=== PATIENT | male | born 1935 | race Caucasian/White ===

== ENCOUNTER 2016-10-24 12:52 | Inpatient (IN) | payer MEDICARE, BC ==
[2016-10-24] MEDS ORDERED: IPRATROPIUM-ALBUTEROL 3 ML NEB INHALATION STA (13:25)
--- NOTE | 2016-10-24 13:57 | ED ---
General Adult HPI - General Chief complaint: Upper Respiratory Infection Stated complaint: Cough Time Seen by Provider: 10/24/16 13:23 Source: patient Mode of arrival: wheelchair Limitations: no limitations - History of Present Illness Initial comments: 81-year-old male presenting for persistent cough and shortness of breath. Patient was treated by PCP several days ago for concern for bronchitis. PCP reevaluated patient today was concern for left lower lobe pneumonia. However family states the patient has had some issues where he appears to be passing out and has had some new onset of generalized weakness. PCP was concerned for possible mini strokes patient was directed to the ED. Eyes any chest pain or shortness breath. Patient denies any history of CVA. - Related Data Home Medications Medication Instructions Recorded Confirmed Donepezil [Aricept] 5 mg PO BID 05/03/15 10/24/16 Lisinopril [Prinivil] 20 mg PO BID 05/03/15 10/24/16 Apixaban [Eliquis] 2.5 mg PO BID 06/28/16 10/24/16 amLODIPine [Norvasc] 5 mg PO DAILY 06/28/16 10/24/16 levETIRAcetam [Keppra] 500 mg PO Q12HR 06/28/16 10/24/16 Previous Rx's Medication Instructions Recorded Albuterol Inhaler [Ventolin Hfa 2 puff INHALATION Q4HR PRN #1 10/24/16 Inhaler] inhaler Levofloxacin [Levaquin] 750 mg PO DAILY #7 tab 10/24/16 Allergies Allergy/AdvReac Type Severity Reaction Status Date / Time No Known Allergies Allergy Verified 10/24/16 13:01 Review of Systems ROS Statement: Those systems with pertinent positive or pertinent negative responses have been documented in the HPI. Constitutional: No fevers. No chills. No change in appetite. No unexpected weight loss. Eyes: No visual changes. No eye pain. No sensitivity to light. HENT: No sinus pressure. No ear pain. No hearing changes. No epistaxis. No sore throat. Respiratory: Positive cough. Positive SOB. No wheezing. Cardiovascular: No chest pain. No palpitations. No lower extremity edema. Abdomen: No abdominal pain. No nausea. No vomiting. No diarrhea. Genitourinary: No dysuria. No hematuria. No difficulty urinating. No flank pain. Musculoskeletal: No injury. No back pain. No myalgias. Skin: No rash. No lesions. No lacerations. Neuro: Positive generalized weakness. Positive syncope. No seizures. No headache. Psych: No confusion. No memory changes. No anxiety/depression. ROS Other: All systems not noted in ROS Statement are negative. Past Medical History Past Medical History: Cancer, Dementia, Hyperlipidemia, Hypertension, Osteoarthritis (OA) Additional Past Medical History / Comment(s): Bladder cancer with surgery. History of Any Multi-Drug Resistant Organisms: None Reported Past Surgical History: Bladder Surgery Additional Past Surgical History / Comment(s): 2011 colonoscopy, cystoscopy, bladder TUR, cancerous tumors removed x2 from bladder. Past Anesthesia/Blood Transfusion Reactions: No Reported Reaction Past Psychological History: No Psychological Hx Reported Additional Psychological History / Comment(s): Pt resides in his home. He has caregivers. He uses no assistive device. He no longer drives. He performs his own ADLs but care takers manage his medications. Smoking Status: Never smoker Past Alcohol Use History: Occasional Additional Past Alcohol Use History / Comment(s): Pt was a heavy drinker but has not drank alcohol in 1 1/2 yrs. Past Drug Use History: None Reported - Past Family History Mother Family Medical History: No Reported History (Mother at age of 32 they thought that she encountered a pneumonia.) Additional Family Medical History / Comment(s): Mother after childbirth from an infection-influenza or pneumonia possibly. Father Family Medical History: No Reported History (Father at age 78 from farm accident) Additional Family Medical History / Comment(s): Father from a tractor accident in his 70's Brother(s) Family Medical History: No Reported History (Patient had 4 brothers one of them at age of 92 from Alzheimer dementia) Sister(s) Family Medical History: No Reported History (Patient had a sister who at the age of 2 year of unknown cause.) Daughter(s) Family Medical History: No Reported History (Vision has 2 daughters no major medical problems) General Exam - General Exam Comments Initial Comments: General: Awake and Alert. No acute distress. Does not appear acutely ill. Obese. Eyes: MICA, EOM intact. No nystagmus. No scleral icterus. HENT: Atraumatic, normocephalic. Mucous membranes moist. Trachea midline. Hard of hearing. Neck: The neck is supple, there is no tenderness or JVD. Cardiovascular: Regular rate and rhythm. No murmur, rub, or gallop is appreciated. Distal pulses intact. There is no lower upper or extremity extremity edema. Respiratory: Lungs are clear to auscultation bilaterally. No wheezes, rales, rhonchi. No respiratory distress. Gastrointestinal: Soft, Nontender. No rebound or guarding. Non-distended. No masses or organomegaly noted. No CVA tenderness. Musculoskeletal: No tenderness. Normal ROM. No gross deformity. No strength deficits. Neurological: A&Ox2 which is baseline per family. CN II-XII grossly intact, There are no obvious motor or sensory deficits. Coordination appears grossly intact. Speech is normal. Skin: Skin is warm and dry and no rashes or lesions are noted. Psychiatric: Cooperative, appropriate mood & affect, normal judgment. Limitations: no limitations Course Vital Signs 10/24/16 10/24/16 10/24/16 12:56 13:49 13:58 Temperature 97.9 F Pulse Rate 64 68 76 Respiratory 18 Rate Blood Pressure 131/65 O2 Sat by Pulse 92 L Oximetry 10/24/16 10/24/16 10/24/16 15:10 16:31 18:46 Temperature 97.6 F 97.3 F L 97.4 F L Pulse Rate 62 70 65 Respiratory 16 16 16 Rate Blood Pressure 118/57 139/63 131/65 O2 Sat by Pulse 91 L 94 L 94 L Oximetry EKG Findings - EKG Comments: EKG Findings:: 14:04. Sinus rhythm with first-degree AV block. Rate 64. NC to 98. QRS 78. QT/QTc 390/42. Normal axis. No STEMI. Nonspecific EKG. Medical Decision Making - Medical Decision Making Patient presented for cough and congestion and shortness of breath. Also with nonspecific weakness and possible syncopal/near syncopal episodes over the past few days. Was sent by PCP for TIA rule out. Patient on initial exam with no focal neurological deficits. Does have some diffuse rhonchi. Lab workup with leukocytosis. BMP is stable. Chest x-ray showing some interstitial markings given his clinical findings concerning for possible pneumonia. Patient was covered on Levaquin given his apparent outpatient failure of azithromycin. Patient does not appear septic at this time. However given these changes a CT head was performed which shows some chronic ischemic changes. Does not appear to have any acute CVA findings. However plan for admission for further CVA rule out as well as workup for his syncope/near syncope. NIHSS 0 on initial exam, with exception of being alerted to person, place, and time, although AOx2 is his baseline. I updated the family and patient on current findings. Discussed plan to treat for pneumonia. Discussed my concerns for syncope and recommendation for admission for further evaluation and treatment. They declined admission at this time. Discussed risks of not staying in the hospital including stroke, heart attack and even . The guardians voice understanding and agree. Discussed discharge home AGAINST MEDICAL ADVICE after remainder of lab work returns. They're agreeable to stay for this. Troponin returned elevated. Discussed this finding with family and concern for NSTEMI. Discussed trending troponins and need for admission. The guardians do agree to keep him in the hospital this time. Patient is anticoagulated on Eliquis, will defer heparin. He was given an aspirin. He is having no active chest pain, appears stable. I called discussed with Dr. Ramirez who is agreeable with plan for admission. Requests consult to cardiology. 18:35 Repeat troponin without increased. Repeat EKG was also performed which shows no significant changes or STEMI. - Lab Data Result diagrams: 10/24/16 13:49 10/24/16 13:49 Lab Results 10/24/16 10/24/16 10/24/16 Range/Units 13:49 13:49 13:49 WBC 12.2 H (3.8-10.6) k/uL RBC 4.79 (4.30-5.90) m/uL Hgb 15.5 (13.0-17.5) gm/dL Hct 46.2 (39.0-53.0) % MCV 96.5 (80.0-100.0) fL MCH 32.4 (25.0-35.0) pg MCHC 33.5 (31.0-37.0) g/dL RDW 12.4 (11.5-15.5) % Plt Count 186 (150-450) k/uL Neutrophils % 74 % Lymphocytes % 15 % Monocytes % 8 % Eosinophils % 1 % Basophils % 0 % Neutrophils # 9.0 H (1.3-7.7) k/uL Lymphocytes # 1.9 (1.0-4.8) k/uL Monocytes # 1.0 (0-1.0) k/uL Eosinophils # 0.1 (0-0.7) k/uL Basophils # 0.0 (0-0.2) k/uL Sodium 138 (137-145) mmol/L Potassium 4.7 (3.5-5.1) mmol/L Chloride 102 (98-107) mmol/L Carbon Dioxide 25 (22-30) mmol/L Anion Gap 11 mmol/L BUN 19 (9-20) mg/dL Creatinine 0.88 (0.66-1.25) mg/dL Est GFR (MDRD) Af Amer >60 (>60 ml/min/1.73 sqM) Est GFR (MDRD) Non-Af >60 (>60 ml/min/1.73 sqM) Glucose 96 (74-99) mg/dL Calcium 9.1 (8.4-10.2) mg/dL CK-MB (CK-2) 3.8 H* (0.0-2.4) ng/mL Troponin I 0.923 H* (0.000-0.034) ng/mL NT-Pro-B Natriuret Pep pg/mL Urine Color Urine Appearance (Clear) Urine pH (5.0-8.0) Ur Specific [place] (1.001-1.035) Urine Protein (Negative) Urine Glucose (UA) (Negative) Urine Ketones (Negative) Urine Blood (Negative) Urine Nitrate (Negative) Urine Bilirubin (Negative) Urine Urobilinogen (<2.0) mg/dL Ur Leukocyte Esterase (Negative) 10/24/16 10/24/16 10/24/16 Range/Units 13:49 14:17 16:40 WBC (3.8-10.6) k/uL RBC (4.30-5.90) m/uL Hgb (13.0-17.5) gm/dL Hct (39.0-53.0) % MCV (80.0-100.0) fL MCH (25.0-35.0) pg MCHC (31.0-37.0) g/dL RDW (11.5-15.5) % Plt Count (150-450) k/uL Neutrophils % % Lymphocytes % % Monocytes % % Eosinophils % % Basophils % % Neutrophils # (1.3-7.7) k/uL Lymphocytes # (1.0-4.8) k/uL Monocytes # (0-1.0) k/uL Eosinophils # (0-0.7) k/uL Basophils # (0-0.2) k/uL Sodium (137-145) mmol/L Potassium (3.5-5.1) mmol/L Chloride (98-107) mmol/L Carbon Dioxide (22-30) mmol/L Anion Gap mmol/L BUN (9-20) mg/dL Creatinine (0.66-1.25) mg/dL Est GFR (MDRD) Af Amer (>60 ml/min/1.73 sqM) Est GFR (MDRD) Non-Af (>60 ml/min/1.73 sqM) Glucose (74-99) mg/dL Calcium (8.4-10.2) mg/dL CK-MB (CK-2) (0.0-2.4) ng/mL Troponin I 0.857 H* (0.000-0.034) ng/mL NT-Pro-B Natriuret Pep 1210 pg/mL Urine Color Yellow Urine Appearance Clear (Clear) Urine pH 6.0 (5.0-8.0) Ur Specific [place] 1.010 (1.001-1.035) Urine Protein Negative (Negative) Urine Glucose (UA) Negative (Negative) Urine Ketones Negative (Negative) Urine Blood Negative (Negative) Urine Nitrate Negative (Negative) Urine Bilirubin Negative (Negative) Urine Urobilinogen 3.0 (<2.0) mg/dL Ur Leukocyte Esterase Negative (Negative) - EKG Data -: EKG Interpreted by Md EKG shows normal: sinus rhythm Rate: normal Interpretation: no acute changes - Radiology Data Radiology results: report reviewed, image reviewed Disposition Clinical Impression: CAP (community acquired pneumonia), Syncope, Generalized weakness, NSTEMI (non- ST elevated myocardial infarction), Leukocytosis Disposition: ADMITTED IP TO THIS [facility] Condition: Stable Decision to Admit Reason: Admit from EC
[2016-10-24 14:01] LABS: Basophils % (A) 0 %; CH 33.6; CHCM 34.9; Eosinophils # (A) 0.1 k/uL (0-0.7); Eosinophils % (A) 1 %; HCT 46.2 % (39.0-53.0); HGB 15.5 gm/dL (13.0-17.5); Luc # (Auto) 0.25; Luc % (Auto) 2; Lymphocytes # (A) 1.9 k/uL (1.0-4.8); Lymphocytes % (A) 15 %; MCH 32.4 pg (25.0-35.0); MCHC 33.5 g/dL (31.0-37.0); MCV 96.5 fL (80.0-100.0); Mean Platelet Volume 8.1; Monocytes % (A) 8 %; Neutrophils % (A) 74 %; RBC 4.79 m/uL (4.30-5.90); RDW 12.4 % (11.5-15.5); WBC 12.2 k/uL (3.8-10.6); WBC (Perox) 12.56
[2016-10-24 14:16] LABS: Anion Gap 11 mmol/L; Blood Urea Nitrogen 19 mg/dL (9-20); Calcium 9.1 mg/dL (8.4-10.2); Carbon Dioxide 25 mmol/L (22-30); Chloride 102 mmol/L (98-107); Glucose 96 mg/dL (74-99); Non-African American GFR(MDRD) >60 (>60 ml/min/1.73 sqM); Potassium 4.7 mmol/L (3.5-5.1); Sodium 138 mmol/L (137-145)
[2016-10-24 14:26] LABS: Appearance,Urine Clear (Clear); Bilirubin,Urine Negative (Negative); Glucose,Urine (UA) Negative (Negative); Ketones,Urine Negative (Negative); Leukocyte Esterase,Urine Negative (Negative); Nitrite,Urine Negative (Negative); Protein,Urine Negative (Negative); UA Billing (MACRO vs. MICRO) CHEM
--- NOTE | 2016-10-24 15:07 | XR ---
EXAMINATION TYPE: XR chest 2V DATE OF EXAM: 10/24/2016 3:03 PM COMPARISON: 06/28/16 HISTORY: Shortness of breath TECHNIQUE: Frontal and lateral views of the chest are obtained. FINDINGS: Scattered senescent parenchymal changes noted. Hyperinflation compatible with COPD. There is evidence of interstitial edema with small effusions and cardiomegaly. Correlate for mild bor derline CHF. Mediastinal structures are stable and grossly unremarkable. No evidence for hilar prominence. Degenerative changes dorsal spine. IMPRESSION: 1. There is evidence of interstitial edema with small effusions and cardiomegaly. Correlate for mild borderline CHF.
--- NOTE | 2016-10-24 15:07 | CT ---
EXAMINATION TYPE: CT brain wo con DATE OF EXAM: 10/24/2016 2:56 PM COMPARISON: NONE INDICATION: Confusion DLP: 1106 mGycm, Automated exposure control for dose reduction was used. CONTRAST: None CT of the brain is performed utilizing 3 mm thick sections through the posterior fossa and 3 mm thick sections through the remaining calvarium. Study is performed within 24 hours of arrival to the hosp ital. No abnormal hyperdensity is present to suggest an acute intracranial hemorrhage. No mass lesion is evident. No acute infarcts are evident. Periventricular white matter hypodensity is present, likely on the bas is of chronic white matter ischemic changes. Ventricles and sulci are prominent for the patient age. Paranasal sinuses and mastoid air cells within the [id number] are clear. Vascular calcification is noted distal internal carotid arteries and vertebral basilar system. Examination is stable from 05/02/2015. IMPRESSIONS: 1. Atrophy with periventricular white matter ischemic changes.
[2016-10-24] MEDS ORDERED: LEVOFLOXACIN 750MG-D5W PMX 750 MG in DEXTROSE/WATER 1 150ML.BAG IVPB STA (15:11)
[2016-10-24] MEDS ORDERED: AZITHROMYCIN 500 MG in SODIUM CHLORIDE 0.9% 250 ML IVPB STA (15:11)
[2016-10-24 16:36] LABS: Creatine Kinase MB 3.8 ng/mL (0.0-2.4); Troponin I 0.923 ng/mL (0.000-0.034)
[2016-10-24] MEDS: ASPIRIN 81 MG CHEW PO STA (16:59)
[2016-10-24] MEDS ORDERED: NITROGLYCERIN SL TABS 0.4 MG TAB SUBLINGUAL PRN (18:07)
[2016-10-24] MEDS ORDERED: LORazepam 1 MG TAB PO STA (18:30)
[2016-10-24 19:25] LABS: Glucose,Whole Blood 90 mg/dL (75-99)
[2016-10-24] MEDS: levETIRAcetam 500 MG TAB PO SCH (22:25)
[2016-10-24] MEDS: APIXABAN 2.5 MG TABLET PO SCH (22:25)
[2016-10-24] MEDS: DONEPEZIL 5 MG TAB PO SCH (22:25)
[2016-10-24] MEDS: LISINOPRIL 20 MG TAB PO SCH (22:26)
[2016-10-24 22:40] VITALS: BMI 33.8
[2016-10-24] MEDS ORDERED: ZOLPIDEM 5 MG TAB PO PRN (23:32)
--- NOTE | 2016-10-25 07:40 | XR ---
EXAMINATION TYPE: XR chest 1V DATE OF EXAM: 10/25/2016 6:29 AM COMPARISON: 10/24/2016 HISTORY: 81 year-old male shortness of breath TECHNIQUE: Single frontal view of the chest is obtained. FINDINGS: Heart remains enlarged. Central interstitial opacities are present with slight increasing patchy righ t basilar opacity, some fluid thickening the minor fissure, and blunting of the costophrenic angles. IMPRESSION: Correlate for continued CHF with pulmonary vascular congestion/mild interstitial edema. Small effusio ns.
[2016-10-25] MEDS ORDERED: HALOPERIDOL LACTATE 5 MG/ML 1 ML VIAL IVP PRN (07:46)
[2016-10-25] MEDS: APIXABAN 2.5 MG TABLET PO SCH (08:56)
[2016-10-25] MEDS: LISINOPRIL 20 MG TAB PO SCH (08:56)
[2016-10-25] MEDS: levETIRAcetam 500 MG TAB PO SCH (08:56)
[2016-10-25] MEDS: DONEPEZIL 5 MG TAB PO SCH (08:56)
[2016-10-25] MEDS ORDERED: amLODIPine 5 MG TAB PO SCH (09:00)
[2016-10-25] MEDS ORDERED: ASPIRIN 325 MG TAB PO SCH (09:00)
[2016-10-25] MEDS ORDERED: FAMOTIDINE 20 MG TAB PO SCH (09:00)
[2016-10-25] MEDS ORDERED: AZITHROMYCIN 250 MG TAB PO SCH (09:00)
[2016-10-25] MEDS: ASPIRIN 81 MG CHEW PO STA (09:05)
--- NOTE | 2016-10-25 10:07 | US ---
EXAMINATION TYPE: US carotid duplex BILAT DATE OF EXAM: 10/25/2016 8:05 AM COMPARISON: NONE CLINICAL HISTORY: 81-year-old male with syncope. TECHNIQUE: Carotid duplex ultrasound. Indirect Doppler criteria was utilized. FINDINGS: TECHNOLOGIST NOTES: combative ICU patient that would not hold still, limited imaging due to this. Grayscale images show mild to moderate atherosclerotic change at the bifurcations. EXAM MEASUREMENTS: RIGHT: Peak Systolic Velocity (PSV) cm/sec ----- Right CCA: 91.9 ----- Right ICA: 93.9 ----- Right ECA: 125.1 ICA/CCA ratio: 1.0 RIGHT: End Diastole cm/sec ----- Right CCA: 16.0 ----- Right ICA: 22.4 ----- Right ECA: 9.9 LEFT: Peak Systolic Velocity (PSV) cm/sec ----- Left CCA: 114.1 ----- Left ICA: 72.2 ----- Left ECA: 123.8 ICA/CCA ratio: 0.6 LEFT: End Diastole cm/sec ----- Left CCA: 12.4 ----- Left ICA: 13.9 ----- Left ECA: 11.2 VERTEBRALS (direction of flow): Right Vertebral: Antegrade Left Vertebral: Antegrade IMPRESSION: Technically difficult examination due to combative patient. No hemodynamically significant stenosis appreciated in either internal carotid artery. Criteria for Assigning % of Stenosis / Diameter reduction (Estimation based on the indirect measurements of the internal carotid artery velocities (ICA PSV). 1. Normal (no stenosis)=ICA PSV < 125 cm/s: ratio < 2.0: ICA EDV<40 cm/s. 2. Less than 50% stenosis=ICA PSV < 125 cm/s: ratio < 2.0: ICA EDV<40 cm/s. 3. 50 to 69% stenosis=ICA PSV of 125 to 230 cm/s: ration 2.0 ? 4.0: ICA EDV 40-100 cm/s. 4. Greater than 70% stenosis to near occlusion= ICA PSV > 230 cm/s: ratio > 4.0: ICA EDV > 100 cm/s. 5. Near occlusion= ICA PSV velocities may be low or undetectable: variable ratio and ICA EDV. 6. Total occlusion=unable to detect flow.
--- NOTE | 2016-10-25 10:30 | ECHOF ---
Referral Reason:nstemi MEASUREMENTS -------- HEIGHT: 157.5 cm WEIGHT: 82.5 kg BP: 153/62 RVIDd: 3.2 cm (< 3.3) IVSd: 1.3 cm (0.6 - 1.1) LVIDd: 4.1 cm (3.9 - 5.3) LVPWd: 1.4 cm (0.6 - 1.1) IVSs: 2.0 cm LVIDs: 3.0 cm LVPWs: 2.0 cm LAESV Index (A-L): 28.33 ml/m IVSd: 1.9 cm (0.6 - 1.1) Ao Diam: 3.6 cm (2.0 - 3.7) AV Cusp: 1.6 cm (1.5 - 2.6) LA Diam: 3.1 cm (2.7 - 3.8) MV E Cesar: 0.69 m/s MV DecT: 242 ms MV A Cesar: 0.98 m/s MV E/A Ratio: 0.70 FINDINGS -------- Sinus rhythm. This was a technically difficult study with suboptimal parasternal views. There is mild concentric left ventricular hypertrophy. Overall left ventricular systolic function is normal with, an EF between 55 - 60 %. The right ventricle is normal in size. Normal LA size by volume 22+/-6 ml/m2. The right atrium is normal in size. The aortic valve is trileaflet and appears structurally normal. Trace amount of aortic regurgitation. The mitral valve leaflets are mildly thickened. Mild mitral annular calcification present. There is trace mitral regurgitation. Trace tricuspid regurgitation present. Pulmonic valve appears structurally normal. The aortic root size is normal. Normal inferior vena cava with normal inspiratory collapse consistent with estimated right atrial pressure of 5 mmHg. Echo free space may represent effusion or a pericardial fat pad. CONCLUSIONS -------- 1. Sinus rhythm. 2. The mitral valve leaflets are mildly thickened. 3. Mild mitral annular calcification present. 4. There is trace mitral regurgitation. 5. Trace tricuspid regurgitation present. 6. Pulmonic valve appears structurally normal. 7. The aortic root size is normal. 8. Echo free space may represent effusion or a pericardial fat pad. 9. This was a technically difficult study with suboptimal parasternal views. 10. There is mild concentric left ventricular hypertrophy. 11. Overall left ventricular systolic function is normal with, an EF between 55 - 60 %. 12. The right ventricle is normal in size. 13. Normal LA size by volume 22+/-6 ml/m2. 14. The right atrium is normal in size. 15. The aortic valve is trileaflet and appears structurally normal. 16. Trace amount of aortic regurgitation. WRITING MANAGER: Yael Oneil RDCS
[2016-10-25 11:10] LABS: Basophils # (A) 0.1 k/uL (0-0.2); Basophils % (A) 1 %; CH 33.2; CHCM 34.8; Eosinophils # (A) 0.1 k/uL (0-0.7); Eosinophils % (A) 1 %; HCT 44.8 % (39.0-53.0); HGB 15.3 gm/dL (13.0-17.5); Luc # (Auto) 0.12; Luc % (Auto) 1; Lymphocytes # (A) 1.6 k/uL (1.0-4.8); Lymphocytes % (A) 14 %; MCH 32.8 pg (25.0-35.0); MCHC 34.1 g/dL (31.0-37.0); MCV 96.1 fL (80.0-100.0); Mean Platelet Volume 9.2; Monocytes % (A) 8 %; Neutrophils # (A) 8.7 k/uL (1.3-7.7); Neutrophils % (A) 75 %; RBC 4.66 m/uL (4.30-5.90); RDW 12.4 % (11.5-15.5); WBC 11.5 k/uL (3.8-10.6); WBC (Perox) 11.32
[2016-10-25 11:16] LABS: ALT 42 U/L (21-72); AST 34 U/L (17-59); Alkaline Phosphatase 66 U/L (38-126); Anion Gap 13 mmol/L; Blood Urea Nitrogen 16 mg/dL (9-20); Calcium 9.3 mg/dL (8.4-10.2); Carbon Dioxide 24 mmol/L (22-30); Chloride 101 mmol/L (98-107); Cholesterol 179 mg/dL (<200); Glucose 101 mg/dL (74-99); HDL Cholesterol 53 mg/dL (40-60); Non-African American GFR(MDRD) >60 (>60 ml/min/1.73 sqM); Potassium 4.3 mmol/L (3.5-5.1); Sodium 138 mmol/L (137-145); Total Bilirubin 1.4 mg/dL (0.2-1.3); Triglycerides 101 mg/dL (<150)
[2016-10-25 11:28] LABS: Troponin I 0.713 ng/mL (0.000-0.034)
[2016-10-25] MEDS ORDERED: risperiDONE 0.5 MG TAB PO SCH (11:45)
[2016-10-25 12:10] VITALS: BP 131/64; PULSE 68; TEMP 98.3
[2016-10-25 12:14] VITALS: RESP 18
--- NOTE | 2016-10-25 15:13 | P.HPIM ---
History of Present Illness H&P Date: 10/24/16 Chief Complaint: Possible non-ST IL, syncope, severe dyspnea and shortness of breath, change 81-year-old male one of Dr. Asif Patient with past medical history of Alzheimer disease bladder cancer, history of hypertension hyperlipidemia who was hospitalized last in June 2016 for third degree AV block and paroxysmal A. fib with worsening dementia and presyncope. Patient was supposed to have a pacemaker and could not convince him or his family for a pacemaker device. Family ended up taking him home on 06/29/2016 after the refusal procedure. Apparently patient has been complaining of increase and worsening dyspnea and shortness of breath with worsening cough ended up seen his PCP was diagnosed with severe bronchitis and left upper lobe pneumonia, patient was treated with oral antibiotics along with expectorant his symptoms become much worse patient had syncopal episodes significant change in mental status and worsening memory loss with the possibility of TIA versus CVA. Ended up coming to the emergency department at [facility] where was seen and evaluated. Patient guardian decided to take him AGAINST MEDICAL ADVICE before testing were completed, chest x-ray showed mild pleural effusion with no infiltrate but mild cardiomegaly. His troponin end up coming positive and the emergency physician convince the family to have him admitted to be evaluated by cardiology and to do serial enzyme and keep him on heparin drip for now. He is remain having arrhythmia but no third-degree AV block this time but will be evaluated again by cardiology. Also patient will be treated for bronchitis with failure of outpatient treatment. Review of Systems Constitutional: Reports anorexia, Reports fatigue, Reports lethargy, Reports malaise, Reports weakness, Denies as per HPI, Denies chills, Denies chronic headaches, Denies chronic pain, Denies daytime sleepiness, Denies fever, Denies night sweats, Denies poor appetite, Denies sweats, Denies weight gain, Denies weight loss Eyes: bilateral as per HPI Ears: bilateral: decreased hearing Ears, nose, mouth and throat: Reports nasal congestion, Reports nasal discharge , Reports sinus pain, Reports sinus pressure, Reports swelling in mouth, Denies as per HPI, Denies ant. neck pain, Denies bleeding gums, Denies dental pain, Denies dysphagia, Denies epistaxis, Denies headache, Denies hoarseness, Denies mouth pain, Denies neck fullness/pressure, Denies neck lump, Denies nose pain, Denies odynophagia, Denies post-nasal drip, Denies swelling in throat, Denies sore throat, Denies vertigo, Denies voice changes Cardiovascular: Reports chest pain, Reports decreased exercise tolerance, Reports dyspnea on exertion, Reports edema, Reports high blood pressure, Reports irregular heart beat, Reports leg edema, Reports orthopnea, Reports palpitations, Reports phlebitis, Reports rapid heart beat, Reports shortness of breath, Denies as per HPI, Denies claudication, Denies lightheadedness, Denies paroxysmal nocturnal dyspnea, Denies syncope Respiratory: Reports congestion, Reports cough, Reports dyspnea, Reports excessive sputum, Reports pain on inspiration, Reports pleurisy, Reports respiratory infections, Reports snoring, Denies as per HPI, Denies cough with sputum, Denies hemoptysis, Denies home oxygen, Denies pain, Denies sleep apnea, Denies wheezing Gastrointestinal: Reports abdominal pain, Reports bloating, Reports change in bowel habits, Reports dyspepsia, Reports indigestion, Reports nausea, Denies as per HPI, Denies belching, Denies BRBPR, Denies coffee ground emesis, Denies constipation, Denies diarrhea, Denies early satiety, Denies excessive gas, Denies heartburn, Denies hematemesis, Denies hematochezia, Denies jaundice, Denies lactose intolerance, Denies loss of appetite, Denies melena, Denies vomiting Genitourinary: Reports decreased libido, Reports dysuria, Reports flank pain, Reports polyuria, Reports urinary frequency, Reports urinary hesitancy, Denies as per HPI, Denies difficulties fathering child, Denies discharge, Denies erectile dysfunction, Denies genital pain, Denies genital sores, Denies hematuria, Denies impotence, Denies incontinence, Denies kidney stones, Denies nocturia, Denies testicular lump, Denies testicular pain, Denies urinary retention Musculoskeletal: Reports loss of height, Reports low back pain, Reports myalgias , Reports neck pain, Reports neck stiffness, Denies as per HPI, Denies arm numbness/tingling, Denies atrophy, Denies fractures, Denies frequent falls, Denies gait dysfunction, Denies hot joints, Denies leg numbness/tingling, Denies limitation of motion, Denies morning stiffness, Denies muscle cramps, Denies muscle weakness, Denies prior amputations, Denies redness of joints, Denies shooting arm pain, Denies shooting leg pain Musculoskeletal: bilateral: ankle pain Integumentary: Reports rash, Reports sores, Denies as per HPI, Denies acne, Denies boils, Denies brittle nails, Denies change in hair/nails, Denies color changes, Denies darkening of skin, Denies depigmentation, Denies dryness, Denies foot/leg ulcers, Denies growths, Denies hirsutism, Denies lesions, Denies onychomycosis, Denies pruritus, Denies striae, Denies unusual bruising, Denies wounds Neurological: Reports balance difficulties, Reports confusion, Reports gait dysfunction, Reports hearing difficulties, Reports lack of coordination, Reports memory loss, Reports migraines, Reports motor disturbance, Reports numbness, Reports paresthesias, Reports spasticity, Reports tingling, Reports tremors, Reports weakness, Denies as per HPI, Denies aphasia, Denies ataxia, Denies burning pain, Denies change in mentation, Denies change in smell/taste, Denies change in speech, Denies convulsions, Denies double vision, Denies head injury, Denies headaches, Denies loss of vision, Denies paralysis, Denies seizures, Denies sensory deficit, Denies syncope, Denies tic, Denies transient paralysis, Denies vertigo, Denies visual changes Psychiatric: Reports anhedonia, Reports anxiety, Reports anxiety attacks, Reports depression, Reports difficulty concentrating, Reports disorientation, Reports insomnia, Reports irritability, Reports mood swings, Denies as per HPI, Denies change in appetite, Denies change in libido, Denies change in sleep habits, Denies confusion, Denies hallucinations, Denies hopelessness, Denies hypersomnia, Denies memory loss, Denies paranoia, Denies sadness/tearfulness, Denies sleep disturbances, Denies suicidal ideation Endocrine: Reports cold intolerance, Reports excessive sweating, Reports fatigue , Reports flushing, Reports palpitations, Reports polyphagia, Reports polyuria, Denies as per HPI, Denies deepening of the voice, Denies excessive thirst, Denies heat intolerance, Denies high blood sugars, Denies increase in ring/shoe/ hat size, Denies low blood sugars, Denies nocturia, Denies polydipsia, Denies proptosis, Denies recent glucocorticoid use, Denies thyroid mass, Denies weight change Hematologic/Lymphatic: Reports easy bruising, Denies as per HPI, Denies easy bleeding, Denies lymphadenopathy, Denies lymphedema, Denies thrombophilia Allergic/Immunologic: Reports allergic rhinitis, Denies as per HPI, Denies anaphylaxis, Denies angioedema, Denies gluten intolerance, Denies persistent infections, Denies seasonal allergies, Denies urticaria, Denies wheezing Past Medical History Past Medical History: Cancer, Dementia, Hyperlipidemia, Hypertension, Osteoarthritis (OA) Additional Past Medical History / Comment(s): Bladder cancer with surgery. History of Any Multi-Drug Resistant Organisms: None Reported Past Surgical History: Bladder Surgery Additional Past Surgical History / Comment(s): 2011 colonoscopy, cystoscopy, bladder TUR, cancerous tumors removed x2 from bladder. Past Anesthesia/Blood Transfusion Reactions: No Reported Reaction Past Psychological History: No Psychological Hx Reported Additional Psychological History / Comment(s): Pt resides in his home. He has caregivers. He uses no assistive device. He no longer drives. He performs his own ADLs but care takers manage his medications. Smoking Status: Never smoker Past Alcohol Use History: Occasional Additional Past Alcohol Use History / Comment(s): Pt was a heavy drinker but has not drank alcohol in 1 1/2 yrs. Past Drug Use History: None Reported - Past Family History Mother Family Medical History: No Reported History (Mother at age of 32 they thought that she encountered a pneumonia.) Additional Family Medical History / Comment(s): Mother after childbirth from an infection-influenza or pneumonia possibly. Father Family Medical History: No Reported History (Father at age 78 from farm accident) Additional Family Medical History / Comment(s): Father from a tractor accident in his 70's Brother(s) Family Medical History: No Reported History (Patient had 4 brothers one of them at age of 92 from Alzheimer dementia) Sister(s) Family Medical History: No Reported History (Patient had a sister who at the age of 2 year of unknown cause.) Daughter(s) Family Medical History: No Reported History (Vision has 2 daughters no major medical problems) Medications and Allergies Home Medications Medication Instructions Recorded Confirmed Type Donepezil [Aricept] 5 mg PO BID 05/03/15 10/24/16 History Lisinopril [Prinivil] 20 mg PO BID 05/03/15 10/24/16 History Apixaban [Eliquis] 2.5 mg PO BID 06/28/16 10/24/16 History amLODIPine [Norvasc] 5 mg PO DAILY 06/28/16 10/24/16 History levETIRAcetam [Keppra] 500 mg PO Q12HR 06/28/16 10/24/16 History Allergies Allergy/AdvReac Type Severity Reaction Status Date / Time No Known Allergies Allergy Verified 10/24/16 13:01 Physical Exam Vitals: Vital Signs Temp Pulse Resp BP Pulse Ox 10/24/16 18:46 97.4 F L 65 16 131/65 94 L Intake and Output 10/24/16 10/24/16 10/24/16 06:59 14:59 22:59 Intake Total 150 Balance 150 Intake: Amount of Fluid Infused ( 150 ml) - Constitutional General appearance: no average body habitus, no cooperative, disheveled, no mild distress, no morbidly obese, no acute distress, no obese, no severe distress, no thin - EENT Eyes: abnormal pupil, no anicteric sclerae, no disc margins sharp, no edentulous , no EOMI, no PERRLA, no fundus normal, no photophobia, no dentition normal, no poor dentition, no ptosis, scleral icterus, normal appearance ENT: hard of hearing, hearing grossly normal, no NA/AT, normal oropharynx, no other, pharyngeal erythema, no thrush, no tonsillar exudates, no tonsillar swelling Ears: bilateral: normal, bulging - Neck Neck: normal ROM Carotids: bilateral: upstroke normal Thyroid: bilateral: normal size - Respiratory Respiratory: bilateral: diminished, dullness, rales, rhonchi, wheezing - Cardiovascular Rhythm: irregularly irregular Heart sounds: normal: S1, S2 Abnormal Heart Sounds: systolic murmur, S3 Gallop - Gastrointestinal General gastrointestinal: no absent bowel sounds, decreased bowel sounds, distended, no hepatomegaly, no hyperactive bowel sounds, normal bowel sounds, no organomegaly, no rigid, scaphoid, soft, no splenomegaly, no tenderness, no umbilical hernia, no ventral hernia - Genitourinary Male genitourinary: enlarged prostate - Integumentary Integumentary: no calor, no cellulitis, no cyanotic, decreased turgor, no flushed, no jaundiced, normal, no normal turgor, pale, rash, no ulcer - Neurologic Neurologic: CNII-XII intact - Musculoskeletal Musculoskeletal: no gait normal, generalized weakness, no strength equal bilaterally, no right sided weakness, no left sided weakness - Psychiatric Psychiatric: no A&O x's 3, no appropriate affect, no intact judgment & insight Results CBC & Chem 7: 10/25/16 10:34 10/25/16 10:34 Thrombosis Risk Factor Assmnt - DVT/VTE Prophylaxis DVT/VTE Prophylaxis: Pharmacologic Prophylaxis ordered, Mechanical Prophylaxis ordered Assessment and Plan Plan: 1 non-ST myocardial infarction: Patient will be hospitalized continue heparin drip continue Nitrol we'll consult cardiology CK with troponin 3 will be done. Continue to watch patient hemodynamic status at this point. 2 syncope versus TIA: Patient had a clear evidence from previous admission with his third-degree AV block that the need for pacemaker which was declined by family in the past which still can be the same problem this time we will watch for any major arrhythmia or third-degree AV block and see if family are agreeable for pacemaker this time. 3 TIA: Most likely symptom of presyncope and his cardiac history at this point to treat underlying disease and keep neuro exam every 3 hours watch for any new neuro findings. 4 worsening dementia: Has been on Aricept 5 mg twice a day continue medication. 5 paroxysmal A. fib: Patient has been on Eliquis. No beta shorty especially with his bradycardia and third-degree block. 6 hypertension: Has been on lisinopril 20 mg twice a day and amlodipine 5 mg daily. 7 seizure with no new activity that patient has been on Keppra. 8 BPH: Watch for any urinary retention patient had history of TURP in the past. 9 Severe purulent tracheal bronchitis/recurrent pneumonia: Chest x-ray remained clear this point but with recurrent symptoms patient will be on antibiotics as a switch course from his outpatient treatment and try to do better coverage and gram-negative. DVT prophylaxis: Patient is on anticoagulation. GI prophylaxis: Patient be on Pepcid 20 mg daily. CODE STATUS: Full code as of [facility]. Expectation from this admission: Patient be in the hospital for more than 2 nights.
--- NOTE | 2016-10-25 16:04 | P.DS ---
Providers Date of admission: 10/24/16 18:08 Expected date of discharge: 10/25/16 Attending physician: Contreras Ramirez Primary care physician: Lonny Hall [facility] Hospital Course: 81-year-old male one of Dr. Asif Patient with past medical history of Alzheimer disease bladder cancer, history of hypertension hyperlipidemia who was hospitalized last in June 2016 for third degree AV block and paroxysmal A. fib with worsening dementia and presyncope. Patient was supposed to have a pacemaker and could not convince him or his family for a pacemaker device. Family ended up taking him home on 06/29/2016 after the refusal procedure. Apparently patient has been complaining of increase and worsening dyspnea and shortness of breath with worsening cough ended up seen his PCP was diagnosed with severe bronchitis and left upper lobe pneumonia, patient was treated with oral antibiotics along with expectorant his symptoms become much worse patient had syncopal episodes significant change in mental status and worsening memory loss with the possibility of TIA versus CVA. Ended up coming to the emergency department at [facility] where was seen and evaluated. Patient guardian decided to take him AGAINST MEDICAL ADVICE before testing were completed, chest x-ray showed mild pleural effusion with no infiltrate but mild cardiomegaly. His troponin end up coming positive and the emergency physician convince the family to have him admitted to be evaluated by cardiology and to do serial enzyme and keep him on heparin drip for now. He is remain having arrhythmia but no third-degree AV block this time but will be evaluated again by cardiology. Also patient will be treated for bronchitis with failure of outpatient treatment. 10/25: Repeat troponin was 0.857. Echocardiogram reveals trace mitral regurgitation, trace tricuspid regurgitation, echo free space may represent effusion or pericardial fat pad, mild concentric left ventricular hypertrophy, EF 55-60%, trace aortic regurgitation. Carotid duplex shows no significant stenosis in either internal carotid artery. Repeat chest x-ray correlates for continued CHF and pulmonary vascular congestion, mild interstitial edema. Small effusions.Patient has been seen by trouble locator test desk. No plan for any intervention. Patient is very anxious and is requesting to be discharged home. Patient will be discharged home to complete his course of azithromycin that he had previously been given by Dr. Asif. Albuterol inhaler will be sent through as a prescription which was started in the ER. Imdur, nitro glycerin sublingual, Lipitor, Risperdal have been ordered for home. Patient will be discharged home today in stable condition. Discharge diagnoses: 1 non-ST myocardial infarction 2 syncope versus TIA: Patient had a clear evidence from previous admission with his third-degree AV block that the need for pacemaker which was declined by family 3 TIA: Most likely symptom of presyncope and his cardiac history 4 worsening dementia 5 paroxysmal A. fib 6 hypertension 7 seizure 8 BPH 9 Severe purulent tracheal bronchitis Discharge plan: Return home Impression and plan of care have been directed as dictated by the signing physician. Maria Victoria Darling nurse practitioner acting as scribe for signing physician. Cc: Dr. Lonny Asif Patient Condition at Discharge: Stable Plan - Discharge Summary New Discharge Prescriptions: Albuterol Inhaler [Ventolin Hfa Inhaler] 2 puff INHALATION Q4HR PRN #1 inhaler PRN Reason: Shortness Of Breath Aspirin 81 mg PO DAILY #30 chewable Atorvastatin [Lipitor] 20 mg PO HS #30 tab Isosorbide Mononitrate ER [Imdur] 15 mg PO DAILY #30 dose Nitroglycerin Sl Tabs [Nitrostat] 0.4 mg SUBLINGUAL Q5M PRN #25 tab PRN Reason: Chest Pain risperiDONE [RisperDAL] 0.5 mg PO BID #60 tab Discharge Medication List Donepezil [Aricept] 5 mg PO BID 05/03/15 [History] Lisinopril [Prinivil] 20 mg PO BID 05/03/15 [History] Apixaban [Eliquis] 2.5 mg PO BID 06/28/16 [History] amLODIPine [Norvasc] 5 mg PO DAILY 06/28/16 [History] levETIRAcetam [Keppra] 500 mg PO Q12HR 06/28/16 [History] Albuterol Inhaler [Ventolin Hfa Inhaler] 2 puff INHALATION Q4HR PRN #1 inhaler 10/25/16 [Rx] Aspirin 81 mg PO DAILY #30 chewable 10/25/16 [Rx] Atorvastatin [Lipitor] 20 mg PO HS #30 tab 10/25/16 [Rx] Isosorbide Mononitrate ER [Imdur] 15 mg PO DAILY #30 dose 10/25/16 [Rx] Nitroglycerin Sl Tabs [Nitrostat] 0.4 mg SUBLINGUAL Q5M PRN #25 tab 10/25/16 [Rx ] risperiDONE [RisperDAL] 0.5 mg PO BID #60 tab 10/25/16 [Rx] Follow up Appointment(s)/Referral(s): Lonny Asif MD [Primary Care Provider] - 1 Week Patient Instructions/Handouts: Myocardial Infarction (DC), Community Acquired Pneumonia (DC) Activity/Diet/Wound Care/Special Instructions: Complete course of azithromycin. Discharge Disposition: HOME SELF-CARE
[2016-10-25] MEDS ORDERED: ATORVASTATIN 20 MG TAB PO SCH (21:00)
--- NOTE | 2016-10-26 17:53 | PN ---
Nino Razo is an 81-year-old male patient who was admitted with severe shortness of breath. Mr. Razo is an 81 -year-old male patient with history of dementia, bladder cancer, hypertension, dyslipidemia. He came in with increasing shortness of breath. Cardiac enzymes are abnormal at 0.9, 0.8, and 0.7 showing a downward trend in his troponins. His electrolytes are normal and white count was mildly elevated. 12 lead ECG showed sinus rhythm with prolonged [place] interval, narrow QRS, normal ST segments. He denied any chest discomfort, dizziness or lightheadedness or loss of consciousness. REVIEW OF SYSTEMS: Denies any fever, chills, rigors. No cough or expectoration. No nausea, vomiting or diarrhea. No hematuria or dysuria. No stroke or seizures. No skin lesions. He has had no syncope. Past history of severe bradycardia and ( ) permanent pacemaker implantation. At this time he has only first-degree AV block. Home medications include: 1. Aricept. 2. Prinivil. 3. Eliquis. 4. Norvasc. 5. Keppra. ALLERGIES: No known drug allergies. On examination, his temperature is 97.4 degree Fahrenheit. Blood pressure 131/65 mm Hg. Head and neck examination is normal . Heart sounds S1 and S2 are normal. No S3 gallop. ABDOMEN: Soft, nontender. EXTREMITIES: Warm. No edema. IMPRESSION: 1. Non-ST segment elevation myocardial infarction. The heparin can be discontinued now. No history of syncope. I do not see any evidence of heart block so far, but he has a history of a heart block. He does have first degree AV block. 2. Possible transient ischemic attack. 3. Worsening dementia. 4. Paroxysmal atrial fibrillation currently in sinus rhythm. 5. He is on Eliquis for stroke prevention. 6. Hypertension, well controlled on Lisinopril and amlodipine. 7. He is being treated for purulent tracheobronchitis. SUGGEST: His shortness of breath is most likely from purulent tracheobronchitis but he does have a mildly abnormal troponins with a downward trend suggestive of non-Q wave myocardial infarction recently. Continue medical treatment. The patient does not want permanent pacemaker.
== END 2016-10-25 15:35 | disposition home or self-care (01) | DRG 281 ==
LOC: EC 12:52 → 6ICU 18:08
PROVIDERS: ADMIT Internal Medicine Geriatric Medicine; ATTEND Internal Medicine Geriatric Medicine
DX: I21.4 Non-ST elevation (NSTEMI) myocardial infarction (principal); G45.9 Transient cerebral ischemic attack, unspecified; R56.9 Unspecified convulsions; G30.9 Alzheimer's disease, unspecified; F02.80 Dementia in other diseases classified elsewhere, unspecified severity, without behavioral disturbance, psychotic disturbance, mood disturbance, and anxiety; I48.0 Paroxysmal atrial fibrillation; E78.5 Hyperlipidemia, unspecified; I10 Essential (primary) hypertension; N40.1 Benign prostatic hyperplasia with lower urinary tract symptoms; M19.90 Unspecified osteoarthritis, unspecified site; J41.1 Mucopurulent chronic bronchitis; I08.3 Combined rheumatic disorders of mitral, aortic and tricuspid valves; F41.9 Anxiety disorder, unspecified; Z79.01 Long term (current) use of anticoagulants; Z79.899 Other long term (current) drug therapy; Z85.51 Personal history of malignant neoplasm of bladder
CPT/HCPCS: 36415; 70450; 71010; 71020; 80048; 80053; 80061; 81003; 82550; 82553; 83880; 84484; 85025; 93005; 93306; 93880; 94640; 96365; 96366; 99285

== ENCOUNTER 2016-10-28 10:04 | Inpatient (IN) | payer MEDICARE, BC ==
[2016-10-28] MEDS ORDERED: IPRATROPIUM-ALBUTEROL 3 ML NEB INHALATION STA (10:18)
[2016-10-28] MEDS ORDERED: SODIUM CHLORIDE 0.9% 1,000 ML IV STA ×2 (10:18)
[2016-10-28] MEDS ORDERED: SODIUM CHLORIDE 0.9% 500 ML IV STA (10:18)
--- NOTE | 2016-10-28 10:18 | ED ---
General Adult HPI - General Chief complaint: Upper Respiratory Infection Stated complaint: sent by dr jorge for sepsis Time Seen by Provider: 10/28/16 10:16 Source: patient, RN notes reviewed, old records reviewed Mode of arrival: ambulatory Limitations: no limitations - History of Present Illness Initial comments: This is an 81-year-old male here for evaluation of shortness of breath and weakness. Patient has significant medical history and also suffers from dementia. Patient is reexamined the hospital and did sign out AGAINST MEDICAL ADVICE. Caregiver this time since patient is on chemo making such a decision secondary to his medical and clinical state. Patient is coming in with cough congestion shortness of breath productive cough. No specific fever. Patient denies specific chest pain but is a poor historian, history obtained from family and his chart - Related Data Home Medications Medication Instructions Recorded Confirmed Donepezil [Aricept] 5 mg PO BID 05/03/15 10/28/16 Lisinopril [Prinivil] 20 mg PO BID 05/03/15 10/28/16 Apixaban [Eliquis] 2.5 mg PO BID 06/28/16 10/28/16 amLODIPine [Norvasc] 5 mg PO DAILY 06/28/16 10/28/16 levETIRAcetam [Keppra] 500 mg PO Q12HR 06/28/16 10/28/16 Albuterol Inhaler [Ventolin Hfa 2 puff INHALATION RT-Q6H PRN 10/28/16 10/28/16 Inhaler] Previous Rx's Medication Instructions Recorded Aspirin 81 mg PO DAILY #30 chewable 10/25/16 Atorvastatin [Lipitor] 20 mg PO HS #30 tab 10/25/16 Isosorbide Mononitrate ER [Imdur] 15 mg PO DAILY #30 dose 10/25/16 Nitroglycerin Sl Tabs [Nitrostat] 0.4 mg SUBLINGUAL Q5M PRN #25 tab 10/25/16 risperiDONE [RisperDAL] 0.5 mg PO BID #60 tab 10/25/16 Allergies Allergy/AdvReac Type Severity Reaction Status Date / Time No Known Allergies Allergy Verified 10/28/16 10:52 Review of Systems ROS Statement: Those systems with pertinent positive or pertinent negative responses have been documented in the HPI. ROS Other: All systems not noted in ROS Statement are negative. Past Medical History Past Medical History: Cancer, Dementia, Hyperlipidemia, Hypertension, Osteoarthritis (OA) Additional Past Medical History / Comment(s): Bladder cancer with surgery. History of Any Multi-Drug Resistant Organisms: None Reported Past Surgical History: Bladder Surgery Additional Past Surgical History / Comment(s): 2011 colonoscopy, cystoscopy, bladder TUR, cancerous tumors removed x2 from bladder. Past Anesthesia/Blood Transfusion Reactions: No Reported Reaction Past Psychological History: No Psychological Hx Reported Additional Psychological History / Comment(s): Pt resides in his home. He has caregivers. He uses no assistive device. He no longer drives. He performs his own ADLs but care takers manage his medications. Smoking Status: Never smoker Past Alcohol Use History: Occasional Additional Past Alcohol Use History / Comment(s): Pt was a heavy drinker but has not drank alcohol in 1 1/2 yrs. Past Drug Use History: None Reported - Past Family History Mother Family Medical History: No Reported History (Mother at age of 32 they thought that she encountered a pneumonia.) Additional Family Medical History / Comment(s): Mother after childbirth from an infection-influenza or pneumonia possibly. Father Family Medical History: No Reported History (Father at age 78 from farm accident) Additional Family Medical History / Comment(s): Father from a tractor accident in his 70's Brother(s) Family Medical History: No Reported History (Patient had 4 brothers one of them at age of 92 from Alzheimer dementia) Sister(s) Family Medical History: No Reported History (Patient had a sister who at the age of 2 year of unknown cause.) Daughter(s) Family Medical History: No Reported History (Vision has 2 daughters no major medical problems) General Exam Limitations: no limitations General appearance: alert, in no apparent distress Head exam: Present: atraumatic, normocephalic, normal inspection Eye exam: Present: normal appearance, PERRL, EOMI. Absent: scleral icterus, conjunctival injection, periorbital swelling ENT exam: Present: normal exam, mucous membranes moist Neck exam: Present: normal inspection. Absent: tenderness, meningismus, lymphadenopathy Respiratory exam: Present: normal lung sounds bilaterally, rhonchi, decreased breath sounds. Absent: respiratory distress, wheezes, rales, stridor Cardiovascular Exam: Present: regular rate, normal rhythm, normal heart sounds. Absent: systolic murmur, diastolic murmur, rubs, gallop, clicks GI/Abdominal exam: Present: soft, normal bowel sounds. Absent: distended, tenderness, guarding, rebound, rigid Extremities exam: Present: normal inspection, full ROM, normal capillary refill. Absent: tenderness, pedal edema, joint swelling, calf tenderness Back exam: Present: normal inspection Neurological exam: Present: alert, oriented X3, CN II-XII intact Psychiatric exam: Present: normal affect, normal mood Skin exam: Present: warm, dry, intact, normal color. Absent: rash Course Vital Signs 10/28/16 10/28/16 10/28/16 10:08 10:30 10:56 Temperature 96.9 F L 97.9 F 97.0 F L Pulse Rate 72 93 75 Respiratory 20 18 18 Rate Blood Pressure 151/74 155/68 146/72 O2 Sat by Pulse 92 L 93 L 94 L Oximetry 10/28/16 10/28/16 10/28/16 11:00 11:01 11:25 Temperature Pulse Rate 77 76 Respiratory 18 Rate Blood Pressure O2 Sat by Pulse Oximetry 10/28/16 12:08 Temperature 97.2 F L Pulse Rate 66 Respiratory 18 Rate Blood Pressure 143/66 O2 Sat by Pulse 96 Oximetry - Reevaluation(s) Reevaluation #1: 10/28/16 12:31 Patient has no significant improvement after breathing treatment Reevaluation #2: 10/28/16 12:31 Hospital records fully reviewed including diagnosis EKG Findings - EKG Comments: EKG Findings:: EKG shows sinus rhythm rate of 79, pO2 72, QRS 74, QTc 442 Medical Decision Making - Medical Decision Making 78 female here for evaluation. Patient treatment for CHF, apparent possible pneumonia. Patient did sign out AGAINST MEDICAL ADVICE, patient was admitted to hospital CHF elevated troponin. Patient's troponin remains elevated today. Will admit for trending of troponin, evaluation by cardiology - Lab Data Result diagrams: 10/28/16 10:55 10/28/16 10:55 Lab Results 10/28/16 10/28/16 10/28/16 Range/Units 10:55 10:55 10:55 WBC 9.2 (3.8-10.6) k/uL RBC 4.66 (4.30-5.90) m/uL Hgb 15.1 (13.0-17.5) gm/dL Hct 44.8 (39.0-53.0) % MCV 96.3 (80.0-100.0) fL MCH 32.5 (25.0-35.0) pg MCHC 33.8 (31.0-37.0) g/dL RDW 12.4 (11.5-15.5) % Plt Count 263 (150-450) k/uL Neutrophils % 63 % Lymphocytes % 24 % Monocytes % 9 % Eosinophils % 2 % Basophils % 1 % Neutrophils # 5.8 (1.3-7.7) k/uL Lymphocytes # 2.2 (1.0-4.8) k/uL Monocytes # 0.8 (0-1.0) k/uL Eosinophils # 0.2 (0-0.7) k/uL Basophils # 0.1 (0-0.2) k/uL PT (9.0-12.0) sec INR (<1.1) APTT (22.0-30.0) sec Sodium 140 (137-145) mmol/L Potassium 4.6 (3.5-5.1) mmol/L Chloride 104 (98-107) mmol/L Carbon Dioxide 27 (22-30) mmol/L Anion Gap 9 mmol/L BUN 13 (9-20) mg/dL Creatinine 0.77 (0.66-1.25) mg/dL Est GFR (MDRD) Af Amer >60 (>60 ml/min/1.73 sqM) Est GFR (MDRD) Non-Af >60 (>60 ml/min/1.73 sqM) Glucose 103 H (74-99) mg/dL Plasma Lactic Acid Lawson (0.7-2.0) mmol/L Calcium 9.4 (8.4-10.2) mg/dL Magnesium 2.1 (1.6-2.3) mg/dL Total Bilirubin 0.5 (0.2-1.3) mg/dL AST 30 (17-59) U/L ALT 48 (21-72) U/L Alkaline Phosphatase 83 (38-126) U/L Total Creatine Kinase 93 (55-170) U/L CK-MB (CK-2) 2.4 (0.0-2.4) ng/mL CK-MB (CK-2) Rel Index 2.6 Troponin I 0.137 H* (0.000-0.034) ng/mL NT-Pro-B Natriuret Pep pg/mL Total Protein 7.0 (6.3-8.2) g/dL Albumin 4.0 (3.5-5.0) g/dL 10/28/16 10/28/16 10/28/16 Range/Units 10:55 10:55 10:55 WBC (3.8-10.6) k/uL RBC (4.30-5.90) m/uL Hgb (13.0-17.5) gm/dL Hct (39.0-53.0) % MCV (80.0-100.0) fL MCH (25.0-35.0) pg MCHC (31.0-37.0) g/dL RDW (11.5-15.5) % Plt Count (150-450) k/uL Neutrophils % % Lymphocytes % % Monocytes % % Eosinophils % % Basophils % % Neutrophils # (1.3-7.7) k/uL Lymphocytes # (1.0-4.8) k/uL Monocytes # (0-1.0) k/uL Eosinophils # (0-0.7) k/uL Basophils # (0-0.2) k/uL PT 11.0 (9.0-12.0) sec INR 1.1 (<1.1) APTT 26.2 (22.0-30.0) sec Sodium (137-145) mmol/L Potassium (3.5-5.1) mmol/L Chloride (98-107) mmol/L Carbon Dioxide (22-30) mmol/L Anion Gap mmol/L BUN (9-20) mg/dL Creatinine (0.66-1.25) mg/dL Est GFR (MDRD) Af Amer (>60 ml/min/1.73 sqM) Est GFR (MDRD) Non-Af (>60 ml/min/1.73 sqM) Glucose (74-99) mg/dL Plasma Lactic Acid Lawson 0.9 (0.7-2.0) mmol/L Calcium (8.4-10.2) mg/dL Magnesium (1.6-2.3) mg/dL Total Bilirubin (0.2-1.3) mg/dL AST (17-59) U/L ALT (21-72) U/L Alkaline Phosphatase (38-126) U/L Total Creatine Kinase (55-170) U/L CK-MB (CK-2) (0.0-2.4) ng/mL CK-MB (CK-2) Rel Index Troponin I (0.000-0.034) ng/mL NT-Pro-B Natriuret Pep 313 pg/mL Total Protein (6.3-8.2) g/dL Albumin (3.5-5.0) g/dL - Radiology Data Radiology results: report reviewed (Chest x-ray positive for CHF), image reviewed Disposition Clinical Impression: NSTEMI (non-ST elevated myocardial infarction), Bradycardia, Generalized weakness, CHF (congestive heart failure), Failure of outpatient treatment Disposition: ADMITTED IP TO THIS HOSP Condition: Fair Referrals: Lonny Jorge MD [Primary Care Provider] - 1-2 days
[2016-10-28 11:27] LABS: Basophils # (A) 0.1 k/uL (0-0.2); Basophils % (A) 1 %; CH 33.8; CHCM 35.3; Eosinophils # (A) 0.2 k/uL (0-0.7); Eosinophils % (A) 2 %; HCT 44.8 % (39.0-53.0); HDW 2.68; HGB 15.1 gm/dL (13.0-17.5); Luc # (Auto) 0.22; Luc % (Auto) 2; Lymphocytes # (A) 2.2 k/uL (1.0-4.8); Lymphocytes % (A) 24 %; MCH 32.5 pg (25.0-35.0); MCHC 33.8 g/dL (31.0-37.0); MCV 96.3 fL (80.0-100.0); Mean Platelet Volume 8.4; Monocytes # (A) 0.8 k/uL (0-1.0); Monocytes % (A) 9 %; Neutrophils # (A) 5.8 k/uL (1.3-7.7); Neutrophils % (A) 63 %; RBC 4.66 m/uL (4.30-5.90); RDW 12.4 % (11.5-15.5); WBC 9.2 k/uL (3.8-10.6); WBC (Perox) 9.26
[2016-10-28 11:38] LABS: ALT 48 U/L (21-72); AST 30 U/L (17-59); Alkaline Phosphatase 83 U/L (38-126); Anion Gap 9 mmol/L; Blood Urea Nitrogen 13 mg/dL (9-20); Calcium 9.4 mg/dL (8.4-10.2); Carbon Dioxide 27 mmol/L (22-30); Chloride 104 mmol/L (98-107); Glucose 103 mg/dL (74-99); Magnesium 2.1 mg/dL (1.6-2.3); Non-African American GFR(MDRD) >60 (>60 ml/min/1.73 sqM); Potassium 4.6 mmol/L (3.5-5.1); Sodium 140 mmol/L (137-145); Total Bilirubin 0.5 mg/dL (0.2-1.3)
[2016-10-28 11:41] LABS: INR 1.1 (<1.1); Partial Thromboplastin Time 26.2 sec (22.0-30.0)
[2016-10-28 12:04] LABS: Creatine Kinase MB 2.4 ng/mL (0.0-2.4)
[2016-10-28 12:10] LABS: Troponin I 0.137 ng/mL (0.000-0.034)
[2016-10-28] MEDS ORDERED: FUROSEMIDE 10 MG/ML 4 ML VIAL IV STA (12:28)
--- NOTE | 2016-10-28 12:30 | XR ---
EXAMINATION TYPE: XR chest 2V DATE OF EXAM: 10/28/2016 11:47 AM COMPARISON: 10/25/2016 HISTORY: 81-year-old male difficulty breathing TECHNIQUE: AP and lateral views FINDINGS: Heart is borderline enlarged with prominence to the pulmonary vasculature. No elier consolidation. No significant pleural effusion seen on the lateral view. IMPRESSION: Borderline cardiomegaly. The pulmonary vasculature may be slightly cephalized. Correlate for mild CHF . No elier pulmonary edema or significant pleural effusion.
[2016-10-28] MEDS: FUROSEMIDE 10 MG/ML 4 ML VIAL IV SCH ×2 (13:39→23:38)
[2016-10-28] MEDS ORDERED: NITROGLYCERIN SL TABS 0.4 MG TAB SUBLINGUAL PRN (15:49)
--- NOTE | 2016-10-28 15:49 | P.CNPUL ---
History of Present Illness Consult date: 10/28/16 Reason for consult: dyspnea History of present illness: This is an 81-year-old male patient who was brought into the emergency department yesterday because of generalized weakness, increased shortness of breath and chest congestion. This patient has dementia and his daughter has his power of estate planning attorney and she is making his medical decisions. In addition, the patient has hypertension, bladder cancer, hyperlipidemia and more recently around June 2016 the patient was diagnosed having a third-degree AV block along with paroxysmal atrial fibrillation. The patient declined pacemaker insertion back then and since then he has not had any major bradycardia arrhythmias. He has been maintained on Eliquis regarding the proximal atrial fibrillation. The patient was in the hospital recently and he was discharged home on 10/25/2016 after being treated for an acute bronchitis/pneumonia. In fact the patient was initially seen by his primary care physician with diagnosed having a rest or checked infection/bronchitis ultimately the patient started having worsening in mental status, diminished level of consciousness, and he had a bout of syncope. For that reason he was admitted to the hospital where no cardiac arrhythmias was identified. The patient's chest x-ray did not reveal any major pneumonias. The patient was treated with antibiotics and ultimately he got released AGAINST MEDICAL ADVICE. Carotid Doppler of his been negative. Echocardiogram at shown a preserved LV function without any significant LV dysfunction abnormalities. No valvular insufficiency or stenosis also noted. Note that during the earlier hospitalization the patient also had some minor troponin leak. His current cardiac rhythm on the EKG is sinus and there is no ST segment elevation or depression. Troponin is minimally elevated and he remains free of any chest pain. This significant other tells me that the patient is also having some difficulty with swallowing. No recent falls. His last bout of fall was approximately 10 days ago and he had a concussion more than 3 years ago due to a fall. His most recent CAT scan of the brain from 10/24/2016 showed diffuse atrophy and white matter changes. Carotid Doppler was insignificant. Review of Systems Advanced dementia with impairment of the cognitive functions. He is able to walk although there is an increased risk of him falling. He is having difficulties with swallowing mostly liquid material. No fever. No chest pain no Past Medical History Past Medical History: Atrial Fibrillation, Cancer, Dementia, Hyperlipidemia, Hypertension, Osteoarthritis (OA) Additional Past Medical History / Comment(s): Other HX: Bladder cancer with chemotherapy-family and caretakers deny surgical intervention, alzheimer's, 3rd degree heart block with paroxysmal AFib-refused it may consider insertion, dementia, hyperlipidemia, hypertension, osteoarthritis, seizure disorder maintained on Keppra History of Any Multi-Drug Resistant Organisms: None Reported Past Surgical History: Bladder Surgery Additional Past Surgical History / Comment(s): 2011 colonoscopy, cystoscopy , TURP and resection of bladder tumors Past Anesthesia/Blood Transfusion Reactions: No Reported Reaction Past Psychological History: No Psychological Hx Reported Additional Psychological History / Comment(s): Pt resides in his home with his significant other. He has caregivers that reside with him and care for him Friday thru Friday. He uses no assistive device. He no longer drives. He performs his own ADLs with direction, but care takers manage his medications. Smoking Status: Never smoker Past Alcohol Use History: Occasional Additional Past Alcohol Use History / Comment(s): Pt was a heavy drinker but has not drank alcohol in 1 1/2 yrs. Past Drug Use History: None Reported - Past Family History Mother Family Medical History: No Reported History Additional Family Medical History / Comment(s): Mother after childbirth from an infection-influenza or pneumonia possibly. Father Family Medical History: No Reported History Additional Family Medical History / Comment(s): Father from a tractor accident in his 70's Brother(s) Family Medical History: No Reported History Sister(s) Family Medical History: No Reported History Daughter(s) Family Medical History: No Reported History Medications and Allergies Home Medications Medication Instructions Recorded Confirmed Type Donepezil [Aricept] 5 mg PO BID 05/03/15 10/28/16 History Lisinopril [Prinivil] 20 mg PO BID 05/03/15 10/28/16 History Apixaban [Eliquis] 2.5 mg PO BID 06/28/16 10/28/16 History amLODIPine [Norvasc] 5 mg PO DAILY 06/28/16 10/28/16 History levETIRAcetam [Keppra] 500 mg PO Q12HR 06/28/16 10/28/16 History Albuterol Inhaler [Ventolin Hfa 2 puff INHALATION RT-Q6H PRN 10/28/16 10/28/16 History Inhaler] Allergies Allergy/AdvReac Type Severity Reaction Status Date / Time No Known Allergies Allergy Verified 10/28/16 10:52 Physical Exam Vitals: Vital Signs Temp Pulse Resp BP Pulse Ox 10/28/16 15:06 97.8 F 86 18 147/108 95 10/28/16 13:45 97.9 F 70 18 152/68 95 Head exam was generally normal. There was no scleral icterus or corneal arcus. Mucous membranes were moist.Neck was supple and without jugular venous distension, thyromegaly, or carotid bruits. Carotids were easily palpable bilaterally. There was no adenopathy. Lung sounds are diminished in lung bases bilaterally along with some scattered rhonchi.Cardiac exam revealed the PMI to be normally situated and sized. The rhythm was regular and no extrasystoles were noted during several minutes of auscultation. The first and second heart sounds were normal and physiologic splitting of the second heart sound was noted. There were no murmurs, rubs, clicks, or gallops.Abdominal exam revealed normal bowel sounds. The abdomen was soft, non-tender, and without masses, organomegaly, or appreciable enlargement of the abdominal aorta.Examination of the extremities revealed easily palpable radial, femoral and pedal pulses. There was no cyanosis, clubbing or edema. Neurologic exam is nonfocal Results - Laboratory Findings CBC and BMP: 10/28/16 10:55 10/28/16 10:55 PT/INR, D-dimer PT 11.0 sec (9.0-12.0) 10/28/16 10:55 INR 1.1 (<1.1) 10/28/16 10:55 - Diagnostic Findings Chest x-ray: image reviewed Assessment and Plan Plan: Assessment 1 advanced dementia with increased risk of fall and aspiration knowing that there has been some difficulties with swallowing process. Is very much likely that the patient aspirating on and off adequate material causing some respiratory distress and increased cough and chest congestion. No evidence of pneumonia on the most recent chest x-ray. 2 significant impairment of cognitive function secondary to dementia 3 history of third-degree AV block, current rhythm is sinus 4 paroxysmal atrial fibrillation, current rhythm is sinus 5 nonspecific troponin elevation without indication of any acute myocardial infarction. The patient is not a candidate for any further coronary intervention at this point and the previous echocardiogram was within normal limits 6 seizure disorder on Keppra. 7 hyperlipidemia 8 hypertension 9 bladder cancer status post TURP and resection of bladder tumors PLAN Check a swallow evaluation. aspiration precautions. I do not see the for antibiotic treatment for now. Meanwhile, the patient can be offered pureed diet. He can be evaluated by cardiology. Ultimately I think there is a social issue ongoing with this patient knowing that he is staying with a significant other who seems to be the main caregiver and the patient will most likely need placement for further care. I will leave this up to the primary care physician and the power of estate planning attorney who happens to be the patient's daughter. We'll resume outpatient medications. We'll follow.
[2016-10-28] MEDS: SODIUM CHLORIDE 0.9% 1,000 ML IV SCH (17:19)
[2016-10-28] MEDS: ASPIRIN 81 MG CHEW PO SCH (17:20)
[2016-10-28] MEDS: amLODIPine 5 MG TAB PO SCH (17:20)
[2016-10-28] MEDS: ISOSORBIDE MONONITRATE ER 15 MG TAB PO SCH (17:20)
[2016-10-28] MEDS: ATORVASTATIN 20 MG TAB PO SCH (20:26)
[2016-10-28] MEDS: APIXABAN 2.5 MG TABLET PO SCH (20:26)
[2016-10-28] MEDS: LISINOPRIL 20 MG TAB PO SCH (20:26)
[2016-10-28] MEDS: risperiDONE 0.5 MG TAB PO SCH (20:26)
[2016-10-28] MEDS: levETIRAcetam 500 MG TAB PO SCH (20:26)
[2016-10-28] MEDS: DONEPEZIL 5 MG TAB PO SCH (20:26)
[2016-10-29] MEDS ORDERED: LORazepam 2 MG/ML SYRINGE IV STA (03:43)
[2016-10-29 06:29] LABS: Basophils # (A) 0.1 k/uL (0-0.2); Basophils % (A) 1 %; CH 33.5; CHCM 34.7; Eosinophils # (A) 0.2 k/uL (0-0.7); Eosinophils % (A) 1 %; HCT 44.8 % (39.0-53.0); HDW 2.61; HGB 14.7 gm/dL (13.0-17.5); Luc % (Auto) 2; Lymphocytes # (A) 2.1 k/uL (1.0-4.8); Lymphocytes % (A) 18 %; MCH 31.9 pg (25.0-35.0); MCHC 32.8 g/dL (31.0-37.0); MCV 97.1 fL (80.0-100.0); Mean Platelet Volume 7.2; Monocytes # (A) 0.9 k/uL (0-1.0); Monocytes % (A) 7 %; Neutrophils # (A) 8.5 k/uL (1.3-7.7); Neutrophils % (A) 72 %; RBC 4.61 m/uL (4.30-5.90); RDW 12.3 % (11.5-15.5); WBC 11.9 k/uL (3.8-10.6); WBC (Perox) 12.23
[2016-10-29 06:45] LABS: ALT 47 U/L (21-72); AST 28 U/L (17-59); Alkaline Phosphatase 69 U/L (38-126); Anion Gap 9 mmol/L; Blood Urea Nitrogen 12 mg/dL (9-20); Calcium 8.8 mg/dL (8.4-10.2); Carbon Dioxide 29 mmol/L (22-30); Chloride 104 mmol/L (98-107); Glucose 101 mg/dL (74-99); Non-African American GFR(MDRD) >60 (>60 ml/min/1.73 sqM); Potassium 3.9 mmol/L (3.5-5.1); Sodium 142 mmol/L (137-145); Total Bilirubin 0.8 mg/dL (0.2-1.3); Total Protein 6.2 g/dL (6.3-8.2)
--- NOTE | 2016-10-29 09:39 | P.CRDCN ---
<Brigitte Webber E - Last Filed: 10/29/16 09:20> History of Present Illness Consult date: 10/29/16 Requesting physician: Antony Marino Reason for Consult (text): Abnormal troponins Chief complaint: Weakness and shortness of breath History of present illness: This is an 81-year-old gentleman who was brought to the emergency room with symptoms of worsening mental status changes. Most of the history is obtained from the medical record, he is quite confused and combative this morning. Patient was just recently in the hospital, signed out AGAINST MEDICAL ADVICE 4 days ago, patient also has history of hypertension, bladder cancer, hyperlipidemia, prior diagnosis of third-degree heart block as well as paroxysmal atrial fibrillation. Patient has been maintained on Eliquis. His recent admission to the hospital was for bronchitis and pneumonia. Cardiology consultation was requested because of abnormal troponins, at the time of my examination he denies any chest pain. Apparently his daughter is his power of plastic battery assembler, she lives in [facility], and is trying to get arrangements made for him to move to an F there. EKG on arrival showed normal sinus rhythm with a first-degree AV block. Echocardiogram with Doppler study was performed which revealed an ejection fraction of 55-60%. Chest x-ray revealed borderline cardiomegaly, possible mild CHF, no pulmonary edema and no pleural effusion. Laboratory data was reviewed, troponins 0.13, 0.14, 0.16. Not consistent with acute coronary syndrome. BNP level 313. Blood pressure 130/60, heart rate in the 70s, 95% on 2 L of oxygen. Past Medical History Past Medical History: Atrial Fibrillation, Cancer, Dementia, Hyperlipidemia, Hypertension, Osteoarthritis (OA) Additional Past Medical History / Comment(s): Other HX: Bladder cancer with chemotherapy-family and caretakers deny surgical intervention, alzheimer's, 3rd degree heart block with paroxysmal AFib-refused it may consider insertion, dementia, hyperlipidemia, hypertension, osteoarthritis, seizure disorder maintained on Keppra History of Any Multi-Drug Resistant Organisms: None Reported Past Surgical History: Bladder Surgery Additional Past Surgical History / Comment(s): 2011 colonoscopy, cystoscopy , TURP and resection of bladder tumors Past Anesthesia/Blood Transfusion Reactions: No Reported Reaction Past Psychological History: No Psychological Hx Reported Additional Psychological History / Comment(s): Pt resides in his home with his significant other. He has caregivers that reside with him and care for him Friday thru Friday. He uses no assistive device. He no longer drives. He performs his own ADLs with direction, but care takers manage his medications. Smoking Status: Never smoker Past Alcohol Use History: Occasional Additional Past Alcohol Use History / Comment(s): Pt was a heavy drinker but has not drank alcohol in 1 1/2 yrs. Past Drug Use History: None Reported - Past Family History Mother Family Medical History: No Reported History Additional Family Medical History / Comment(s): Mother after childbirth from an infection-influenza or pneumonia possibly. Father Family Medical History: No Reported History Additional Family Medical History / Comment(s): Father from a tractor accident in his 70's Brother(s) Family Medical History: No Reported History Sister(s) Family Medical History: No Reported History Daughter(s) Family Medical History: No Reported History Medications and Allergies Home Medications Medication Instructions Recorded Confirmed Type Donepezil [Aricept] 5 mg PO BID 05/03/15 10/28/16 History Lisinopril [Prinivil] 20 mg PO BID 05/03/15 10/28/16 History Apixaban [Eliquis] 2.5 mg PO BID 06/28/16 10/28/16 History amLODIPine [Norvasc] 5 mg PO DAILY 06/28/16 10/28/16 History levETIRAcetam [Keppra] 500 mg PO Q12HR 06/28/16 10/28/16 History Albuterol Inhaler [Ventolin Hfa 2 puff INHALATION RT-Q6H PRN 10/28/16 10/28/16 History Inhaler] Allergies Allergy/AdvReac Type Severity Reaction Status Date / Time No Known Allergies Allergy Verified 10/28/16 10:52 Physical Exam Vitals: Vital Signs Temp Pulse Pulse Pulse Resp BP BP 10/29/16 08:00 78 16 130/63 10/29/16 04:00 99.1 F 90 18 152/77 10/29/16 02:55 93 18 122/60 10/29/16 02:45 99 18 116/59 10/28/16 23:30 97.8 F 92 18 141/67 10/28/16 19:50 98.7 F 71 71 16 139/67 10/28/16 16:00 97.1 F L 70 12 139/66 10/28/16 15:06 97.8 F 86 18 147/108 10/28/16 13:45 97.9 F 70 18 152/68 Pulse Ox 10/29/16 08:00 91 L 10/29/16 04:00 95 10/29/16 02:55 96 10/29/16 02:45 93 L 10/28/16 23:30 93 L 10/28/16 19:50 94 L 10/28/16 16:00 92 L 10/28/16 15:06 95 10/28/16 13:45 95 Intake and Output 10/28/16 10/29/16 10/29/16 22:59 06:59 14:59 Intake Total 220 Output Total 200 Balance 220 -200 Intake: Oral 220 Output: Urine 200 Other: Voiding Method Urinal Urinal Urinal Incontinent Incontinent # Voids 1 0 Weight 78.5 kg PHYSICAL EXAMINATION: HEENT: Head is atraumatic, normocephalic. Pupils equal, round. Neck is supple. There is no elevated jugular venous pressure. HEART EXAMINATION: Heart S1, S2 normal. No murmur or gallop heard. CHEST EXAMINATION: Lungs reveal scattered coarse rhonchi throughout. ABDOMEN: Soft, nontender. Bowel sounds are heard. No organomegaly noted. EXTREMITIES: 2+ peripheral pulses with no evidence of peripheral edema and no calf tenderness noted. NEUROLOGIC [patient is awake, confused and combative. . Results 10/29/16 06:14 10/29/16 06:14 Cardiac Enzymes 10/28/16 10/29/16 10/29/16 Range/Units 19:11 00:03 06:14 AST 28 (17-59) U/L Troponin I 0.148 H* 0.163 H* (0.000-0.034) ng/mL CBC 10/29/16 Range/Units 06:14 WBC 11.9 H (3.8-10.6) k/uL RBC 4.61 (4.30-5.90) m/uL Hgb 14.7 (13.0-17.5) gm/dL Hct 44.8 (39.0-53.0) % Plt Count 254 (150-450) k/uL Comprehensive Metabolic Panel 01/31/17 Range/Units 06:14 Sodium 142 (137-145) mmol/L Potassium 3.9 (3.5-5.1) mmol/L Chloride 104 (98-107) mmol/L Carbon Dioxide 29 (22-30) mmol/L BUN 12 (9-20) mg/dL Creatinine 0.90 (0.66-1.25) mg/dL Glucose 101 H (74-99) mg/dL Calcium 8.8 (8.4-10.2) mg/dL AST 28 (17-59) U/L ALT 47 (21-72) U/L Alkaline Phosphatase 69 (38-126) U/L Total Protein 6.2 L (6.3-8.2) g/dL Albumin 3.5 (3.5-5.0) g/dL Current Medications Generic Name Dose Route Start Last Admin Trade Name Freq PRN Reason Stop Dose Admin Amlodipine Besylate 5 mg 10/28/16 16:00 10/28/16 17:20 Norvasc PO 5 mg DAILY MARTINA Administration Apixaban 2.5 mg 10/28/16 21:00 10/28/16 20:26 Eliquis PO 2.5 mg BID MARTINA Administration Aspirin 81 mg 10/28/16 16:00 10/28/16 17:20 Aspirin PO 81 mg DAILY MARTINA Administration Atorvastatin Calcium 20 mg 10/28/16 21:00 10/28/16 20:26 Lipitor PO 20 mg HS MARTINA Administration Donepezil HCl 5 mg 10/28/16 21:00 10/28/16 20:26 Aricept PO 5 mg BID MARITNA Administration Furosemide 40 mg 10/28/16 12:30 10/28/16 23:38 Lasix IV 40 mg Q12H MARTINA Administration Sodium Chloride 1,000 mls @ 20 mls/hr 10/28/16 12:30 10/28/16 17:19 Saline 0.9% IV Not Given .Q24H MARTINA Isosorbide Mononitrate 15 mg 10/28/16 16:00 10/28/16 17:20 Imdur PO 15 mg DAILY MARTINA Administration Levetiracetam 500 mg 10/28/16 21:00 10/28/16 20:26 Keppra PO 500 mg Q12HR MARTINA Administration Lisinopril 20 mg 10/28/16 21:00 10/28/16 20:26 Zestril PO 20 mg BID MARTINA Administration Nitroglycerin 0.4 mg 10/28/16 15:49 Nitrostat SUBLINGUAL Q5M PRN Chest Pain Risperidone 0.5 mg 10/28/16 21:00 10/28/16 20:26 Risperdal PO 0.5 mg BID MARTINA Administration Intake and Output 10/28/16 10/29/16 10/29/16 22:59 06:59 14:59 Intake Total 220 Output Total 200 Balance 220 -200 Intake: Oral 220 Output: Urine 200 Other: Voiding Method Urinal Urinal Urinal Incontinent Incontinent # Voids 1 0 Weight 78.5 kg 10/29/16 06:14 10/29/16 06:14 EKG Interpretations (text) EKG shows normal sinus rhythm with a first-degree AV block. Assessment and Plan Plan: Assessment and plan #1 increased mental status changes in a patient with advanced dementia. #2 paroxysmal atrial fibrillation, currently in normal sinus rhythm, on Eliquis for anticoagulation. #3 abnormal troponins, not consistent with acute coronary syndrome, myocardial infarction ruled out. #4 hyperlipidemia #5 Alzheimer's dementia #6 history of bladder cancer Plan From cardiology's perspective, we'll discontinue the IV Lasix. Continue baby aspirin, SHAYAN inhibitor, and Norvasc. Patient just had an echocardiogram with Doppler study performed earlier this month, we will not repeat one at this time , LV function 55-60%. We'll follow this patient with you now on an as-needed basis only, please don't hesitate to call with any questions. DNP note has been reviewed, I agree with a documented findings and plan of care. Patient was seen and examined. <Kieran Alba - Last Filed: 10/29/16 20:18> Physical Exam Vitals: Vital Signs Temp Pulse Resp BP Pulse Ox 10/29/16 15:50 96.8 F L 66 16 119/55 93 L 10/29/16 12:40 72 16 127/58 93 L 10/29/16 08:00 78 16 130/63 91 L 10/29/16 04:00 99.1 F 90 18 152/77 95 10/29/16 02:55 93 18 122/60 96 10/29/16 02:45 99 18 116/59 93 L 10/28/16 23:30 97.8 F 92 18 141/67 93 L Intake and Output 10/29/16 10/29/16 10/29/16 06:59 14:59 22:59 Intake Total 160 Output Total 200 200 Balance -200 -40 Intake: Intake, IV Titration 160 Amount Sodium Chloride 0.9% 1, 160 000 ml @ 20 mls/hr IV . Q24H [facility] Rx#:[id number] Output: Urine 200 200 Other: Voiding Method Urinal Urinal Urinal Incontinent Incontinent Incontinent # Voids 1 1 2 # Bowel Movements 0 Weight 78.5 kg 78.5 kg Patient Weight 10/30/16 06:59 Weight 78.5 kg Results 10/29/16 06:14 10/29/16 06:14 Cardiac Enzymes 10/28/16 10/29/16 10/29/16 Range/Units 19:11 00:03 06:14 AST 28 (17-59) U/L Troponin I 0.148 H* 0.163 H* (0.000-0.034) ng/mL CBC 10/29/16 Range/Units 06:14 WBC 11.9 H (3.8-10.6) k/uL RBC 4.61 (4.30-5.90) m/uL Hgb 14.7 (13.0-17.5) gm/dL Hct 44.8 (39.0-53.0) % Plt Count 254 (150-450) k/uL Comprehensive Metabolic Panel 10/29/16 Range/Units 06:14 Sodium 142 (137-145) mmol/L Potassium 3.9 (3.5-5.1) mmol/L Chloride 104 (98-107) mmol/L Carbon Dioxide 29 (22-30) mmol/L BUN 12 (9-20) mg/dL Creatinine 0.90 (0.66-1.25) mg/dL Glucose 101 H (74-99) mg/dL Calcium 8.8 (8.4-10.2) mg/dL AST 28 (17-59) U/L ALT 47 (21-72) U/L Alkaline Phosphatase 69 (38-126) U/L Total Protein 6.2 L (6.3-8.2) g/dL Albumin 3.5 (3.5-5.0) g/dL Current Medications Generic Name Dose Route Start Last Admin Trade Name Freq PRN Reason Stop Dose Admin Amlodipine Besylate 5 mg 10/28/16 16:00 10/29/16 10:16 Norvasc PO 5 mg DAILY MARTINA Administration Apixaban 2.5 mg 10/28/16 21:00 10/29/16 10:16 Eliquis PO 2.5 mg BID MARTINA Administration Aspirin 81 mg 10/28/16 16:00 10/29/16 10:16 Aspirin PO 81 mg DAILY MARTINA Administration Atorvastatin Calcium 20 mg 10/28/16 21:00 10/28/16 20:26 Lipitor PO 20 mg HS MARTINA Administration Donepezil HCl 5 mg 10/28/16 21:00 10/29/16 10:16 Aricept PO 5 mg BID MARTINA Administration Sodium Chloride 1,000 mls @ 20 mls/hr 10/28/16 12:30 10/29/16 13:06 Saline 0.9% IV Not Given .Q24H MARTINA Piperacillin/Tazobactam/ 50 mls @ 12.5 mls/hr 10/29/16 16:00 10/29/16 17:49 Dextrose 3.375 gm/ IV Solution IVPB 12.5 mls/hr Q8HR MARTINA Administration Isosorbide Mononitrate 15 mg 10/28/16 16:00 10/29/16 10:16 Imdur PO 15 mg DAILY MARTINA Administration Levetiracetam 500 mg 10/28/16 21:00 10/29/16 10:16 Keppra PO 500 mg Q12HR MARTINA Administration Lisinopril 20 mg 10/28/16 21:00 10/29/16 10:17 Zestril PO 20 mg BID MARTINA Administration Lorazepam 0.25 mg 10/29/16 09:31 10/29/16 19:31 Ativan IV 0.25 mg Q6HR PRN Administration Anxiety Nitroglycerin 0.4 mg 10/28/16 15:49 Nitrostat SUBLINGUAL Q5M PRN Chest Pain Risperidone 0.5 mg 10/28/16 21:00 10/29/16 10:17 Risperdal PO 0.5 mg BID MARTINA Administration Intake and Output 10/29/16 10/29/16 10/29/16 06:59 14:59 22:59 Intake Total 160 Output Total 200 200 Balance -200 -40 Intake: Intake, IV Titration 160 Amount Sodium Chloride 0.9% 1, 160 000 ml @ 20 mls/hr IV . Q24H [facility] Rx#:[id number] Output: Urine 200 200 Other: Voiding Method Urinal Urinal Urinal Incontinent Incontinent Incontinent # Voids 1 1 2 # Bowel Movements 0 Weight 78.5 kg 78.5 kg Patient Weight 10/30/16 06:59 Weight 78.5 kg 10/29/16 06:14 10/29/16 06:14
[2016-10-29] MEDS: APIXABAN 2.5 MG TABLET PO SCH ×2 (10:16→22:36)
[2016-10-29] MEDS: DONEPEZIL 5 MG TAB PO SCH ×2 (10:16→22:36)
[2016-10-29] MEDS: amLODIPine 5 MG TAB PO SCH (10:16)
[2016-10-29] MEDS: ASPIRIN 81 MG CHEW PO SCH (10:16)
[2016-10-29] MEDS: levETIRAcetam 500 MG TAB PO SCH (10:16)
[2016-10-29] MEDS: ISOSORBIDE MONONITRATE ER 15 MG TAB PO SCH (10:16)
[2016-10-29] MEDS: LISINOPRIL 20 MG TAB PO SCH ×2 (10:17→22:36)
[2016-10-29] MEDS: risperiDONE 0.5 MG TAB PO SCH ×2 (10:17→22:36)
--- NOTE | 2016-10-29 12:48 | P.HPIM ---
History of Present Illness H&P Date: 10/29/16 Chief Complaint: Dyspnea. 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 fib with worsening dementia and presyncope. Patient was supposed to have a pacemaker and could not convince him or his family for a pacemaker device. Family ended up taking him home on 06/29/2016 after the refusal procedure. Apparently patient has been complaining of increase and worsening dyspnea and shortness of breath with worsening cough ended up seen his PCP was diagnosed with severe bronchitis and left upper lobe pneumonia, patient was treated with oral antibiotics along with expectorant his symptoms become much worse patient had syncopal episodes significant change in mental status and worsening memory loss with the possibility of TIA versus CVA. Ended up coming to the emergency department at [facility] where was seen and evaluated. Patient guardian decided to take him AGAINST MEDICAL ADVICE before testing were completed, chest x-ray showed mild pleural effusion with no infiltrate but mild cardiomegaly. His troponin end up coming positive and the emergency physician convince the family to have him admitted to be evaluated by cardiology and to do serial enzyme and keep him overnight unfortunately patient was released against medical advice on 10/25/2016 and he was brought back by his daughter who carries his durable power of claims attorney and making his medical decision and patient was seen and evaluated by cardiology and pulmonary and was hence admitted to the hospital. Review of Systems Constitutional: Reports fatigue, Reports weakness, Denies weight gain Eyes: denies blurred vision, denies bulging eye, denies decreased vision Ears: bilateral: decreased hearing Ears, nose, mouth and throat: Reports dysphagia, Denies neck lump, Denies swelling in throat, Denies sore throat Cardiovascular: Reports decreased exercise tolerance, Reports dyspnea on exertion, Reports shortness of breath, Denies chest pain, Denies lightheadedness , Denies rapid heart beat, Denies syncope Respiratory: Reports congestion, Reports cough, Reports cough with sputum, Reports wheezing, Denies sleep apnea, Denies snoring Gastrointestinal: Reports bloating, Reports BRBPR, Reports early satiety, Reports heartburn, Reports hematemesis, Denies abdominal pain, Denies melena, Denies nausea, Denies vomiting Genitourinary: Reports nocturia, Denies dysuria Musculoskeletal: Denies myalgias Musculoskeletal: absent: ankle pain, ankle stiffness, ankle swelling, elbow pain , elbow stiffness, elbow swelling, foot pain, foot stiffness, foot swelling, hand pain, hand stiffness, hand swelling, hip pain, hip stiffness, hip swelling , knee pain, knee stiffness, knee swelling, shoulder pain, shoulder stiffness, shoulder swelling, wrist pain, wrist stiffness, wrist swelling Integumentary: Denies pruritus, Denies rash Neurological: Reports confusion, Reports memory loss, Denies numbness, Denies weakness Psychiatric: Reports anxiety, Reports memory loss, Denies depression Endocrine: Denies fatigue, Denies weight change Past Medical History Past Medical History: Atrial Fibrillation, Cancer, Dementia, Hyperlipidemia, Hypertension, Osteoarthritis (OA) Additional Past Medical History / Comment(s): Other HX: Bladder cancer with chemotherapy-family and caretakers deny surgical intervention, alzheimer's, 3rd degree heart block with paroxysmal AFib-refused it may consider insertion, dementia, hyperlipidemia, hypertension, osteoarthritis, seizure disorder maintained on Keppra History of Any Multi-Drug Resistant Organisms: None Reported Past Surgical History: Bladder Surgery Additional Past Surgical History / Comment(s): 2011 colonoscopy, cystoscopy , TURP and resection of bladder tumors Past Anesthesia/Blood Transfusion Reactions: No Reported Reaction Past Psychological History: No Psychological Hx Reported Additional Psychological History / Comment(s): Pt resides in his home with his significant other. He has caregivers that reside with him and care for him Friday thru Friday. He uses no assistive device. He no longer drives. He performs his own ADLs with direction, but care takers manage his medications. Smoking Status: Never smoker Past Alcohol Use History: Occasional Additional Past Alcohol Use History / Comment(s): Pt was a heavy drinker but has not drank alcohol in 1 1/2 yrs. Past Drug Use History: None Reported - Past Family History Mother Family Medical History: No Reported History Additional Family Medical History / Comment(s): Mother after childbirth from an infection-influenza or pneumonia possibly. Father Family Medical History: No Reported History Additional Family Medical History / Comment(s): Father from a tractor accident in his 70's Brother(s) Family Medical History: No Reported History Sister(s) Family Medical History: No Reported History Daughter(s) Family Medical History: No Reported History Medications and Allergies Home Medications Medication Instructions Recorded Confirmed Type Donepezil [Aricept] 5 mg PO BID 05/03/15 10/28/16 History Lisinopril [Prinivil] 20 mg PO BID 05/03/15 10/28/16 History Apixaban [Eliquis] 2.5 mg PO BID 06/28/16 10/28/16 History amLODIPine [Norvasc] 5 mg PO DAILY 06/28/16 10/28/16 History levETIRAcetam [Keppra] 500 mg PO Q12HR 06/28/16 10/28/16 History Albuterol Inhaler [Ventolin Hfa 2 puff INHALATION RT-Q6H PRN 10/28/16 10/28/16 History Inhaler] Allergies Allergy/AdvReac Type Severity Reaction Status Date / Time No Known Allergies Allergy Verified 10/28/16 10:52 Physical Exam Vitals: Vital Signs Temp Pulse Pulse Pulse Resp BP BP 10/28/16 19:50 98.7 F 71 71 16 139/67 10/28/16 16:00 97.1 F L 70 12 139/66 10/28/16 15:06 97.8 F 86 18 147/108 10/28/16 13:45 97.9 F 70 18 152/68 Pulse Ox 10/28/16 19:50 94 L 10/28/16 16:00 92 L 10/28/16 15:06 95 10/28/16 13:45 95 Intake and Output 10/28/16 10/28/16 10/29/16 14:59 22:59 06:59 Intake Total 220 Balance 220 Intake: Oral 220 Other: Voiding Method Urinal - Constitutional General appearance: mild distress - EENT Eyes: anicteric sclerae, PERRLA, no ptosis, no scleral icterus, normal appearance ENT: hard of hearing, normal oropharynx, no thrush Ears: bilateral: normal - Neck Neck: no lymphadenopathy, normal ROM, no rigidity, no stridor, no thyromegaly Carotids: bilateral: upstroke delayed Thyroid: bilateral: normal size - Respiratory Respiratory: bilateral: diminished, negative: dullness, rales, rhonchi, wheezing , prolonged expiration, prolonged inspiration - Cardiovascular Rhythm: regular Heart sounds: normal: S1, S2 Abnormal Heart Sounds: systolic murmur - Gastrointestinal General gastrointestinal: soft, no splenomegaly, no tenderness, no umbilical hernia, no ventral hernia - Integumentary Integumentary: normal, normal turgor - Neurologic Neurologic: CNII-XII intact - Musculoskeletal Musculoskeletal: generalized weakness, strength equal bilaterally - Psychiatric Psychiatric: no A&O x's 3, no appropriate affect, no intact judgment & insight Results CBC & Chem 7: 10/28/16 10:55 10/28/16 10:55 Labs: Abnormal Lab Results - Last 24 Hours (Table) 10/28/16 Range/Units 19:11 Troponin I 0.148 H* (0.000-0.034) ng/mL Thrombosis Risk Factor Assmnt - DVT/VTE Prophylaxis DVT/VTE Prophylaxis: Pharmacologic Prophylaxis ordered, Mechanical Prophylaxis ordered - Choose All That Apply Any of the Below Risk Factors Present?: Yes Each Factor Represents 1 point: Acute MT, Heart failure (<1month), Obesity (BMI >25) Other Risk Factors: Yes Each Risk Factor Represents 2 Points: Malignancy Each Risk Factor Represents 3 Points: Age 75 years or older Other congenital or acquired thrombophilia - If yes, enter type in comment: No Thrombosis Risk Factor Assessment Total Risk Factor Score: 8 Thrombosis Risk Factor Assessment Level: High Risk Assessment and Plan Plan: Assessment and plan: 1. Non-ST myocardial infarction. Patient will be hospitalized, troponin -I x3 and cardiology consult.. 2. Possible aspiration. will follow up on swallow evaluation. 3. worsening dementia: Has been on Aricept 5 mg twice a day continue medication. 4. paroxysmal A. fib: Patient has been on Eliquis 2.5 mg orally bid. 5. Hypertension. Has been on lisinopril 20 mg twice a day and amlodipine 5 mg daily. 6. seizure with no new activity that patient has been on Keppra. 500 Mg orally twice per day. 7. BPH: Watch for any urinary retention patient had history of TURP in the past. 8. DVT prophylaxis: Patient is on Eliquis 2.5 mg orally bid. 9. GI prophylaxis: Patient be on Pepcid 20 mg daily. 10. Full code.
--- NOTE | 2016-10-29 12:58 | P.PN ---
Subjective This is an 81-year-old male patient who was brought into the emergency department yesterday because of generalized weakness, increased shortness of breath and chest congestion. This patient has dementia and his daughter has his power of access representative and she is making his medical decisions. In addition, the patient has hypertension, bladder cancer, hyperlipidemia and more recently around June 2016 the patient was diagnosed having a third-degree AV block along with paroxysmal atrial fibrillation. The patient declined pacemaker insertion back then and since then he has not had any major bradycardia arrhythmias. He has been maintained on Eliquis regarding the proximal atrial fibrillation. The patient was in the hospital recently and he was discharged home on 10/25/2016 after being treated for an acute bronchitis/pneumonia. In fact the patient was initially seen by his primary care physician with diagnosed having a rest or checked infection/bronchitis ultimately the patient started having worsening in mental status, diminished level of consciousness, and he had a bout of syncope. For that reason he was admitted to the hospital where no cardiac arrhythmias was identified. The patient's chest x-ray did not reveal any major pneumonias. The patient was treated with antibiotics and ultimately he got released AGAINST MEDICAL ADVICE. Carotid Doppler of his been negative. Echocardiogram at shown a preserved LV function without any significant LV dysfunction abnormalities. No valvular insufficiency or stenosis also noted. Note that during the earlier hospitalization the patient also had some minor troponin leak. His current cardiac rhythm on the EKG is sinus and there is no ST segment elevation or depression. Troponin is minimally elevated and he remains free of any chest pain. This significant other tells me that the patient is also having some difficulty with swallowing. No recent falls. His last bout of fall was approximately 10 days ago and he had a concussion more than 3 years ago due to a fall. His most recent CAT scan of the brain from 10/24/2016 showed diffuse atrophy and white matter changes. Carotid Doppler was insignificant. On 10/29/2016 the patient is being seen in follow-up. I saw this patient in consult yesterday. I thought the patient was having episodes of aspiration based on that I asked his swallow to be evaluated by speech pathology. The swallow evaluation has not been done yet. Meanwhile, the patient not having any major stroke difficulties. He has ruled in for a acute non-ST elevation myocardial infarction based on a minor elevation of the troponin. History of any chest pain. Note that the patient has worsening dementia despite being on Aricept. His performance and functional status is been progressively getting worse and he has significant impairment in his cognitive functions. No seizures been noted that the patient is still on Keppra for now. Still awaiting a swallow evaluation. Objective - Vital Signs Vital signs: Vital Signs Temp 99.1 F 10/29/16 04:00 Pulse 78 10/29/16 08:00 Resp 16 10/29/16 08:00 BP 130/63 10/29/16 08:00 Pulse Ox 91 L 10/29/16 08:00 Intake & Output 10/28/16 10/29/16 10/29/16 18:59 06:59 18:59 Intake Total 220 Output Total 200 Balance 220 -200 Weight 78.5 kg 78.5 kg Intake: Oral 220 Output: Urine 200 Other: Voiding Method Urinal Urinal Urinal Incontinent Incontinent # Voids 1 0 - Exam Head exam was generally normal. There was no scleral icterus or corneal arcus. Mucous membranes were moist.Neck was supple and without jugular venous distension, thyromegaly, or carotid bruits. Carotids were easily palpable bilaterally. There was no adenopathy. Lung sounds are diminished in lung bases bilaterally along with some scattered rhonchi.Cardiac exam revealed the PMI to be normally situated and sized. The rhythm was regular and no extrasystoles were noted during several minutes of auscultation. The first and second heart sounds were normal and physiologic splitting of the second heart sound was noted. There were no murmurs, rubs, clicks, or gallops.Abdominal exam revealed normal bowel sounds. The abdomen was soft, non-tender, and without masses, organomegaly, or appreciable enlargement of the abdominal aorta.Examination of the extremities revealed easily palpable radial, femoral and pedal pulses. There was no cyanosis, clubbing or edema. Neurologic exam is nonfocal Results - Labs CBC & Chem 7: 10/29/16 06:14 10/29/16 06:14 Labs: Abnormal Lab Results - Last 24 Hours (Table) 10/28/16 10/29/16 10/29/16 Range/Units 19:11 00:03 06:14 WBC 11.9 H (3.8-10.6) k/uL Neutrophils # 8.5 H (1.3-7.7) k/uL Glucose (74-99) mg/dL Troponin I 0.148 H* 0.163 H* (0.000-0.034) ng/mL Total Protein (6.3-8.2) g/dL 10/29/16 Range/Units 06:14 WBC (3.8-10.6) k/uL Neutrophils # (1.3-7.7) k/uL Glucose 101 H (74-99) mg/dL Troponin I (0.000-0.034) ng/mL Total Protein 6.2 L (6.3-8.2) g/dL Assessment and Plan Plan: Assessment 1 advanced dementia with increased risk of fall and aspiration knowing that there has been some difficulties with swallowing process. Is very much likely that the patient aspirating on and off adequate material causing some respiratory distress and increased cough and chest congestion. No evidence of pneumonia on the most recent chest x-ray. On 10/29/2016 the patient is being seen in follow-up. I'm still awaiting a swallow evaluation. No significant evidence of pneumonia. I think the patient is on of aspirating specially liquid diet and this is a result of his advanced dementia with loss in his oropharyngeal phase of swallowing. 2 significant impairment of cognitive function secondary to dementia 3 history of third-degree AV block, current rhythm is sinus 4 paroxysmal atrial fibrillation, current rhythm is sinus 5 suspected non-ST segment elevation myocardial infarction with positive troponins. 6 seizure disorder on Keppra. 7 hyperlipidemia 8 hypertension 9 bladder cancer status post TURP and resection of bladder tumors PLAN Check a swallow evaluation. aspiration precautions. Teletype Mechanic seen the patient and the plan is medical treatment. Continue aspirin and SHAYAN inhibitor and Norvasc. Echocardiogram does not reveal any significant impairment of LV function. As such medical treatment will be offered for this patient and I think this reasonable based on his poor baseline performance and functional status and ongoing impairment in his higher cognitive functions. Meanwhile, we will limit use of benzodiazepines knowing that the patient was still drowsy this morning, under the effect of Ativan that was given to him yesterday. We' ll continue to follow.
[2016-10-29] MEDS: SODIUM CHLORIDE 0.9% 1,000 ML IV SCH (13:06)
--- NOTE | 2016-10-29 15:42 | FL ---
COMPARISON: NONE HISTORY: Dysphasia A number of thin and thick substances were ingested under the care of the department of speech pathol ogy. There is 1 min 2 sec fluoro, severe residuals, deep penetration with honey thick and puree, del ayed swallow mechanism, aspiration with nectar thick silent. IMPRESSION: 1. See above.
--- NOTE | 2016-10-29 16:29 | P.CNNES ---
History of Present Illness Consult date: 10/29/16 Reason for Consult: Patient with swallowing difficulty and possible stroke. History of Present Illness: This patient is a 81-year-old right-handed white male who was admitted to hospital yesterday with symptoms of altered mental status and confusion. Patient has a history of underlying advanced dementia. He was recently discharged from the hospital 4 days ago when he signed out AGAINST MEDICAL ADVICE. He has complex past medical history including history of bladder cancer , hypertension, hyperlipidemia, paroxysmal atrial fibrillation, and advanced dementia. For his atrial fibrillation he has been taking Kaveh was on a daily basis. Today the patient was evaluated by speech therapy and underwent a swallow evaluation which he barely past. He was sent for a barium swallow study but could not complete the study as he was aspirating. The patient has been having difficulty swallowing since admission to hospital. He also was noted to have some gurgling sound in his speech when he tries to speak at this time. He does have to clear his throat of secretions quite often. He is a very poor historian due to his underlying dementia. 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 He also has a history of seizure disorder and is currently using Keppra as his primary anticonvulsant medication. Apparently he has been having difficulty with his speech and swallowing mechanism for the past 5 days. His daughter who lives in [facility] is his power of county attorney and she is planning to make a decision regarding placement of this patient at the time of discharge. The patient apparently was seen by his primary care physician yesterday and there was concern for question of stroke. He did undergo a computed tomography scan of the brain on 10/24/2016 which showed diffuse atrophy and white matter changes. Carotid Doppler was in significant with no evidence of carotid stenosis. Given the finding of severe dysphagia there is concern for brainstem stroke. He is now been admitted and neurology has been consulted for further evaluation and recommendations. Review of Systems Constitutional: Denies chills, Denies fever Eyes: denies blurred vision, denies pain Ears, nose, mouth and throat: Denies headache, Denies sore throat Cardiovascular: Denies chest pain, Denies shortness of breath Respiratory: Denies cough Gastrointestinal: Denies abdominal pain, Denies diarrhea, Denies nausea, Denies vomiting Musculoskeletal: Denies myalgias Integumentary: Denies pruritus, Denies rash Neurological: Reports change in speech, Reports convulsions, Reports lack of coordination, Denies numbness, Denies weakness Psychiatric: Denies anxiety, Denies depression Endocrine: Denies fatigue, Denies weight change Past Medical History Past Medical History: Atrial Fibrillation, Cancer, Dementia, Hyperlipidemia, Hypertension, Osteoarthritis (OA) Additional Past Medical History / Comment(s): Other HX: Bladder cancer with chemotherapy-family and caretakers deny surgical intervention, alzheimer's, 3rd degree heart block with paroxysmal AFib-refused it may consider insertion, dementia, hyperlipidemia, hypertension, osteoarthritis, seizure disorder maintained on Keppra History of Any Multi-Drug Resistant Organisms: None Reported Past Surgical History: Bladder Surgery Additional Past Surgical History / Comment(s): 2011 colonoscopy, cystoscopy , TURP and resection of bladder tumors Past Anesthesia/Blood Transfusion Reactions: No Reported Reaction Past Psychological History: No Psychological Hx Reported Additional Psychological History / Comment(s): Pt resides in his home with his significant other. He has caregivers that reside with him and care for him Friday thru Friday. He uses no assistive device. He no longer drives. He performs his own ADLs with direction, but care takers manage his medications. Smoking Status: Never smoker Past Alcohol Use History: Occasional Additional Past Alcohol Use History / Comment(s): Pt was a heavy drinker but has not drank alcohol in 1 1/2 yrs. Past Drug Use History: None Reported - Past Family History Mother Family Medical History: No Reported History Additional Family Medical History / Comment(s): Mother after childbirth from an infection-influenza or pneumonia possibly. Father Family Medical History: No Reported History Additional Family Medical History / Comment(s): Father from a tractor accident in his 70's Brother(s) Family Medical History: No Reported History Sister(s) Family Medical History: No Reported History Daughter(s) Family Medical History: No Reported History Medications and Allergies Home Medications Medication Instructions Recorded Confirmed Type Donepezil [Aricept] 5 mg PO BID 05/03/15 10/28/16 History Lisinopril [Prinivil] 20 mg PO BID 05/03/15 10/28/16 History Apixaban [Eliquis] 2.5 mg PO BID 06/28/16 10/28/16 History amLODIPine [Norvasc] 5 mg PO DAILY 06/28/16 10/28/16 History levETIRAcetam [Keppra] 500 mg PO Q12HR 06/28/16 10/28/16 History Albuterol Inhaler [Ventolin Hfa 2 puff INHALATION RT-Q6H PRN 10/28/16 10/28/16 History Inhaler] Allergies Allergy/AdvReac Type Severity Reaction Status Date / Time No Known Allergies Allergy Verified 10/28/16 10:52 Physical Examination - Vital Signs Vital Signs: Vital Signs Temp Pulse Pulse Resp BP Pulse Ox 10/29/16 15:50 96.8 F L 66 16 119/55 93 L 10/29/16 12:40 72 16 127/58 93 L 10/29/16 08:00 78 16 130/63 91 L 10/29/16 04:00 99.1 F 90 18 152/77 95 10/29/16 02:55 93 18 122/60 96 10/29/16 02:45 99 18 116/59 93 L 10/28/16 23:30 97.8 F 92 18 141/67 93 L 10/28/16 19:50 98.7 F 71 71 16 139/67 94 L Intake and Output 10/29/16 10/29/16 10/29/16 06:59 14:59 22:59 Output Total 200 Balance -200 Output: Urine 200 Other: Voiding Method Urinal Urinal Incontinent Incontinent # Voids 1 1 # Bowel Movements 0 Weight 78.5 kg 78.5 kg Patient Weight 10/30/16 06:59 Weight 78.5 kg - Constitutional General appearance: average body habitus, cooperative - EENT EENT: PERRL, mucous membranes moist - Respiratory Respiratory: lungs clear, normal breath sounds - Cardiovascular Cardiovascular: regular rate, normal S1, normal S2 Extremities: no peripheral edema bilaterally - Gastrointestinal Gastrointestinal: normoactive bowel sounds - Integumentary Integumentary: normal - Neurologic Cranial nerve examination: PERRL, EOMI, VFF, V1/V2/V3 grossly intact, face symmetric, intact gag reflex, intact corneal reflex, normal palatal elevation Speech examination: intact, other (Patient has garbled speech due to fluid and saliva accumulation.) Sensorimotor examination: intact, seizure Detailed motor examination: grossly full strength in all extremities Motor examination - right side: 5/5: biceps, triceps, wrist flexion, wrist extension, home mortgage disclosure act specialist, hip flexors, knee extensors, dorsiflexion, toe extension (EHL) , plantarflexion Motor examination - left side: 5/5: biceps, triceps, wrist flexion, wrist extension, home mortgage disclosure act specialist, hip flexors, knee extensors, dorsiflexion, toe extension (EHL) , plantarflexion Detailed sensory examination: intact Reflexes: 1+: ankle, bicep, knee, tricep - Musculoskeletal Musculoskeletal: no pain - Psychiatric Psychiatric: mood/affect appropriate, agitated, cooperative Results - Laboratory Findings CBC and BMP: 10/29/16 06:14 10/29/16 06:14 Abnormal Lab Findings: Abnormal Labs 10/28/16 10/29/16 10/29/16 19:11 00:03 06:14 WBC 11.9 H Neutrophils # 8.5 H Glucose Troponin I 0.148 H* 0.163 H* Total Protein 10/29/16 06:14 WBC Neutrophils # Glucose 101 H Troponin I Total Protein 6.2 L Assessment and Plan (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 Patient was noted to have increased difficulty with dysphagia and had failed his swallow evaluation. He was unable to do a barium swallow study today. There is concern for possibility of brainstem stroke as he has multiple stroke risk factors including paroxysmal atrial fibrillation and hyperlipidemia. He suffers from advanced dementia as well and is currently being treated. For his atrial fibrillation he has been using Ahlquist for long-term anticoagulation. He was just recently discharged from Hospital last week and returns due to worsening symptoms of confusion and mental status changes. We have recommended the patient undergo MRI of the brain for further evaluation of possible brainstem ischemia and/or brainstem stroke. He is to remain nothing by mouth at this time. He has a history of underlying seizure disorder and should be maintained on Keppra for seizure prophylaxis. His overall prognosis at this time remains very guarded. Case was discussed at length with the patient and his significant other at bedside. All of their questions were answered. She is aware of his guarded condition at this time. His power of county attorney is his daughter who will be contacting nursing staff regarding discharge planning and placement. His overall prognosis at this time remains very guarded. Time with Patient: Greater than 30
[2016-10-29] MEDS: PIPERACILLIN-TAZOBACTAM 3.375 GM in DEXTROSE/WATER 1 50ML.BAG IVPB SCH ×2 (17:49→23:31)
[2016-10-29] MEDS: LORazepam 2 MG/ML SYRINGE IV PRN (19:31)
[2016-10-29] MEDS: ATORVASTATIN 20 MG TAB PO SCH (22:36)
[2016-10-29] MEDS: levETIRAcetam IV 500 MG in SODIUM CHLORIDE 0.9% 100 ML IVPB SCH (23:06)
[2016-10-30] MEDS: LORazepam 2 MG/ML SYRINGE IV PRN ×3 (03:00→23:38)
[2016-10-30] MEDS: APIXABAN 2.5 MG TABLET PO SCH (08:15)
[2016-10-30] MEDS: amLODIPine 5 MG TAB PO SCH (08:15)
[2016-10-30] MEDS: DONEPEZIL 5 MG TAB PO SCH ×2 (08:15→22:01)
[2016-10-30] MEDS: ASPIRIN 81 MG CHEW PO SCH (08:15)
[2016-10-30] MEDS: LISINOPRIL 20 MG TAB PO SCH ×2 (08:15→22:01)
[2016-10-30] MEDS: ISOSORBIDE MONONITRATE ER 15 MG TAB PO SCH (08:15)
[2016-10-30] MEDS: risperiDONE 0.5 MG TAB PO SCH ×2 (08:16→22:01)
[2016-10-30] MEDS: levETIRAcetam IV 500 MG in SODIUM CHLORIDE 0.9% 100 ML IVPB SCH ×2 (08:18→21:47)
[2016-10-30] MEDS: PIPERACILLIN-TAZOBACTAM 3.375 GM in DEXTROSE/WATER 1 50ML.BAG IVPB SCH ×3 (08:30→23:38)
--- NOTE | 2016-10-30 10:25 | MR ---
Brain MRI without contrast HISTORY: Dysphagia, brainstem infarct Correlation to CT brain 2016 There is increased signal on diffusion images involving the middle cerebellar peduncle on the left co rresponding signal on inversion recovery and T2-weighted sequences compatible with restricted diffusi on, subacute infarct, small focus of restricted diffusion images also present within the medulla post erior laterally on the left. There is no hemorrhage or hydrocephalus. Corpus callosum, pituitary, cer vical medullary junction, cerebellopontine angles are within normal limits. Dolichoectasia change of the vertebrobasilar system. There is extensive inflammatory change involving the maxillary sinus, eth moid air cells. The globes and orbits show a symmetric appearance. There is motion on the exam. Periv entricular and subcortical white matter shows increased signal on inversion recovery and T2-weighted sequences. There is cortical atrophy. IMPRESSION: Subacute infarct in the posterior lateral brain stem, left middle cerebellar peduncle com patible with patient's history. Age-related atrophy and chronic small vessel ischemia. Sinus disease.
--- NOTE | 2016-10-30 13:41 | P.PN ---
Subjective This is an 81-year-old gentleman who was brought to the emergency room with symptoms of worsening mental status changes. Most of the history is obtained from the medical record, he is quite confused and combative this morning. Patient was just recently in the hospital, signed out AGAINST MEDICAL ADVICE 4 days ago, patient also has history of hypertension, bladder cancer, hyperlipidemia, prior diagnosis of third-degree heart block as well as paroxysmal atrial fibrillation. Patient has been maintained on Eliquis. His recent admission to the hospital was for bronchitis and pneumonia. Cardiology consultation was requested because of abnormal troponins, at the time of my examination he denies any chest pain. Apparently his daughter is his power of claims attorney, she lives in [facility], and is trying to get arrangements made for him to move to an [facility] there Objective - Vital Signs Vital signs: Vital Signs Temp 97.0 F L 10/30/16 08:00 Pulse 69 10/30/16 08:00 Resp 18 10/30/16 08:00 BP 125/68 10/30/16 03:00 Pulse Ox 97 10/30/16 08:00 Intake & Output 10/29/16 10/30/16 10/30/16 18:59 06:59 18:59 Intake Total 160 Output Total 200 0 300 Balance -40 0 -300 Weight 78.5 kg 78 kg Intake: Intake, IV Titration 160 Amount Sodium Chloride 0.9% 1, 160 000 ml @ 20 mls/hr IV . Q24H [facility] Rx#:[id number] Output: Urine 200 0 300 Other: Voiding Method Urinal Urinal Incontinent Incontinent # Voids 2 # Bowel Movements 0 - Exam PHYSICAL EXAMINATION: HEENT: Head is atraumatic, normocephalic. Pupils equal, round. Neck is supple. There is no elevated jugular venous pressure. HEART EXAMINATION: Heart S1, S2 normal. No murmur or gallop heard. CHEST EXAMINATION: Lungs reveal scattered coarse rhonchi throughout. ABDOMEN: Soft, nontender. Bowel sounds are heard. No organomegaly noted. EXTREMITIES: 2+ peripheral pulses with no evidence of peripheral edema and no calf tenderness noted. NEUROLOGIC [patient is awake, confused and combative. . - Labs CBC & Chem 7: 10/29/16 06:14 10/29/16 06:14 Assessment and Plan Plan: Assessment and plan #1 increased mental status changes in a patient with advanced dementia. #2 paroxysmal atrial fibrillation, currently in normal sinus rhythm, on Eliquis for anticoagulation. #3 abnormal troponins, not consistent with acute coronary syndrome, myocardial infarction ruled out. #4 hyperlipidemia #5 Alzheimer's dementia #6 history of bladder cancer Plan From cardiology's perspective, . Continue baby aspirin, SHAYAN inhibitor, and Norvasc. Patient just had an echocardiogram with Doppler study performed earlier this month, we will not repeat one at this time, LV function 55-60%. We 'll follow this patient with you now on an as-needed basis only, please don't hesitate to call with any questions. DNP note has been reviewed, I agree with a documented findings and plan of care. Patient was seen and examined.
--- NOTE | 2016-10-30 15:21 | P.PN ---
Subjective This is an 81-year-old male patient who was brought into the emergency department yesterday because of generalized weakness, increased shortness of breath and chest congestion. This patient has dementia and his daughter has his power of health care attorney and she is making his medical decisions. In addition, the patient has hypertension, bladder cancer, hyperlipidemia and more recently around June 2016 the patient was diagnosed having a third-degree AV block along with paroxysmal atrial fibrillation. The patient declined pacemaker insertion back then and since then he has not had any major bradycardia arrhythmias. He has been maintained on Eliquis regarding the proximal atrial fibrillation. The patient was in the hospital recently and he was discharged home on 10/25/2016 after being treated for an acute bronchitis/pneumonia. In fact the patient was initially seen by his primary care physician with diagnosed having a rest or checked infection/bronchitis ultimately the patient started having worsening in mental status, diminished level of consciousness, and he had a bout of syncope. For that reason he was admitted to the hospital where no cardiac arrhythmias was identified. The patient's chest x-ray did not reveal any major pneumonias. The patient was treated with antibiotics and ultimately he got released AGAINST MEDICAL ADVICE. Carotid Doppler of his been negative. Echocardiogram at shown a preserved LV function without any significant LV dysfunction abnormalities. No valvular insufficiency or stenosis also noted. Note that during the earlier hospitalization the patient also had some minor troponin leak. His current cardiac rhythm on the EKG is sinus and there is no ST segment elevation or depression. Troponin is minimally elevated and he remains free of any chest pain. This significant other tells me that the patient is also having some difficulty with swallowing. No recent falls. His last bout of fall was approximately 10 days ago and he had a concussion more than 3 years ago due to a fall. His most recent CAT scan of the brain from 10/24/2016 showed diffuse atrophy and white matter changes. Carotid Doppler was insignificant. On 10/29/2016 the patient is being seen in follow-up. I saw this patient in consult yesterday. I thought the patient was having episodes of aspiration based on that I asked his swallow to be evaluated by speech pathology. The swallow evaluation has not been done yet. Meanwhile, the patient not having any major stroke difficulties. He has ruled in for a acute non-ST elevation myocardial infarction based on a minor elevation of the troponin. History of any chest pain. Note that the patient has worsening dementia despite being on Aricept. His performance and functional status is been progressively getting worse and he has significant impairment in his cognitive functions. No seizures been noted that the patient is still on Keppra for now. Still awaiting a swallow evaluation. On 10/30/2016, the patient is being seen in follow-up. The patient is not having any major respiratory difficulties. Aspiration was confirmed by the swallow evaluation. There is deep penetration and large amount of residuals on his swallow evaluation in addition to relate swallow mechanism and silent aspiration. MRI of the brain was also done and showed a subacute stroke/ infarct involving the posterior brainstem and cerebellar peduncles. There is also diffuse atrophy consistent with his underlying dementia. Neurology is on the case. Consideration is to be given for a PEG tube insertion. Objective - Vital Signs Vital signs: Vital Signs Temp 97.0 F L 10/30/16 08:00 Pulse 69 10/30/16 12:00 Resp 18 10/30/16 12:00 BP 137/64 10/30/16 12:00 Pulse Ox 93 L 10/30/16 12:00 Intake & Output 10/29/16 10/30/16 10/30/16 18:59 06:59 18:59 Intake Total 160 Output Total 200 0 300 Balance -40 0 -300 Weight 78.5 kg 78 kg Intake: Intake, IV Titration 160 Amount Sodium Chloride 0.9% 1, 160 000 ml @ 20 mls/hr IV . Q24H [facility] Rx#:[id number] Output: Urine 200 0 300 Other: Voiding Method Urinal Urinal Incontinent Incontinent # Voids 2 # Bowel Movements 0 - Exam Head exam was generally normal. There was no scleral icterus or corneal arcus. Mucous membranes were moist.Neck was supple and without jugular venous distension, thyromegaly, or carotid bruits. Carotids were easily palpable bilaterally. There was no adenopathy. Lung sounds are diminished in lung bases bilaterally along with some scattered rhonchi.Cardiac exam revealed the PMI to be normally situated and sized. The rhythm was regular and no extrasystoles were noted during several minutes of auscultation. The first and second heart sounds were normal and physiologic splitting of the second heart sound was noted. There were no murmurs, rubs, clicks, or gallops.Abdominal exam revealed normal bowel sounds. The abdomen was soft, non-tender, and without masses, organomegaly, or appreciable enlargement of the abdominal aorta.Examination of the extremities revealed easily palpable radial, femoral and pedal pulses. There was no cyanosis, clubbing or edema. Neurologic exam is nonfocal Results - Labs CBC & Chem 7: 10/29/16 06:14 10/29/16 06:14 Assessment and Plan Plan: Assessment 1 advanced dementia with increased risk of fall and aspiration knowing that there has been some difficulties with swallowing process. Is very much likely that the patient aspirating on and off adequate material causing some respiratory distress and increased cough and chest congestion. No evidence of pneumonia on the most recent chest x-ray. On 10/29/2016 the patient is being seen in follow-up. I'm still awaiting a swallow evaluation. No significant evidence of pneumonia. I think the patient is on of aspirating specially liquid diet and this is a result of his advanced dementia with loss in his oropharyngeal phase of swallowing. On 10/30/2010, aspiration has been confirmed by a video fluoroscopic examination. The patient has silent aspiration. He has deep penetration. He has delayed swallow. 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 The patient and his family and his power of health care attorney has made a decision not to introduce a feeding tube and the patient is being considered for hospice care. 2 significant impairment of cognitive function secondary to dementia 3 history of third-degree AV block, current rhythm is sinus 4 paroxysmal atrial fibrillation, current rhythm is sinus 5 suspected non-ST segment elevation myocardial infarction with positive troponins. 6 seizure disorder on Keppra. 7 hyperlipidemia 8 hypertension 9 bladder cancer status post TURP and resection of bladder tumors PLAN Recommend further discussion with the family in regards to or noted options which would include potentially insertion of a PEG tube for enteral feeding and nutritional support. As this is not acceptable measured by the family and power of health care attorney, the alternative would be hospice care doctor the patient swallows quite impaired and he will not be able to meet his caloric requirements and he with subject himself to decrease risk of aspiration pneumonias. Pulmonary status is stable for now
--- NOTE | 2016-10-30 16:20 | P.PN ---
Subjective 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 fib with worsening dementia and presyncope. Patient was supposed to have a pacemaker and could not convince him or his family for a pacemaker device. Family ended up taking him home on 06/29/2016 after the refusal procedure. Apparently patient has been complaining of increase and worsening dyspnea and shortness of breath with worsening cough ended up seen his PCP was diagnosed with severe bronchitis and left upper lobe pneumonia, patient was treated with oral antibiotics along with expectorant his symptoms become much worse patient had syncopal episodes significant change in mental status and worsening memory loss with the possibility of TIA versus CVA. Ended up coming to the emergency department at [facility] where was seen and evaluated. Patient guardian decided to take him AGAINST MEDICAL ADVICE before testing were completed, chest x-ray showed mild pleural effusion with no infiltrate but mild cardiomegaly. His troponin end up coming positive and the emergency physician convince the family to have him admitted to be evaluated by cardiology and to do serial enzyme and keep him overnight unfortunately patient was released against medical advice on 10/25/2016 and he was brought back by his daughter who carries his durable power of adjunct history instructor and making his medical decision and patient was seen and evaluated by cardiology and pulmonary and was hence admitted to the hospital. 2: Patient has sitter at the bedside for ongoing confusion. Patient has been going in and out of third-degree block with heart rate down to 30s. Cardiology is on consult. Speech therapy has evaluated patient and he underwent modified barium swallow with recommendations for nothing by mouth status and consultation with neurology for possible brainstem infarct. Consult with Dakota montes de oca with recommendations for MRI, Georgina for seizure prophylaxis and seizure precautions. MRI of the brain shows subacute infarct in the posterior lateral brainstem, left middle cerebellar peduncle compatible with patient's history. Age-related atrophy and chronic small vessel ischemia. Sinus disease. Patient is also followed by Dr. Castillo. No evidence of pneumonia but patient continued on Zosyn for possible aspiration. Will contact patient's POA regarding PEG which he would be a poor candidate for this. Objective - Vital Signs Vital signs: Vital Signs Temp 97.0 F L 10/30/16 03:00 Pulse 86 10/30/16 03:00 Resp 18 10/30/16 03:00 BP 125/68 10/30/16 03:00 Pulse Ox 90 L 10/30/16 03:00 Intake & Output 10/29/16 10/30/16 10/30/16 18:59 06:59 18:59 Intake Total 160 Output Total 200 0 Balance -40 0 Weight 78.5 kg 78 kg Intake: Intake, IV Titration 160 Amount Sodium Chloride 0.9% 1, 160 000 ml @ 20 mls/hr IV . Q24H [facility] Rx#:[id number] Output: Urine 200 0 Other: Voiding Method Urinal Urinal Incontinent Incontinent # Voids 2 # Bowel Movements 0 - Exam General appearance: mild distress - EENT Eyes: anicteric sclerae, PERRLA, no ptosis, no scleral icterus, normal appearance ENT: hard of hearing, normal oropharynx, no thrush Ears: bilateral: normal - Neck Neck: no lymphadenopathy, normal ROM, no rigidity, no stridor, no thyromegaly Carotids: bilateral: upstroke delayed Thyroid: bilateral: normal size - Respiratory Respiratory: bilateral: diminished, negative: dullness, rales, rhonchi, wheezing , prolonged expiration, prolonged inspiration - Cardiovascular Rhythm: regular Heart sounds: normal: S1, S2 Abnormal Heart Sounds: systolic murmur - Gastrointestinal General gastrointestinal: soft, no splenomegaly, no tenderness, no umbilical hernia, no ventral hernia - Integumentary Integumentary: normal, normal turgor - Neurologic Neurologic: CNII-XII intact - Musculoskeletal Musculoskeletal: generalized weakness, strength equal bilaterally - Psychiatric Psychiatric: no A&O x's 3, no appropriate affect, no intact judgment & insight - Labs CBC & Chem 7: 10/29/16 06:14 10/29/16 06:14 Assessment and Plan Plan: 1. Non-ST myocardial infarction. Patient will be hospitalized, troponin -I x3 and cardiology consult.. 2. Possible aspiration. Modified barium swallow with recommendations as above. Continue nothing by mouth status. 3. Subacute infarct in the posterior lateral brainstem, left middle cerebellar peduncle and worsening dementia: Has been on Aricept 5 mg twice a day continue medication. Neurology consult appreciated. 4. paroxysmal A. fib: Patient has been on Eliquis 2.5 mg orally bid. 5. Hypertension. Has been on lisinopril 20 mg twice a day and amlodipine 5 mg daily. 6. seizure with no new activity that patient has been on Keppra. 500 Mg orally twice per day. 7. BPH: Watch for any urinary retention patient had history of TURP in the past. 8. DVT prophylaxis: Patient is on Eliquis 2.5 mg orally bid. 9. GI prophylaxis: Patient be on Pepcid 20 mg daily. 10. Full code. Discharge plan: Subacute rehab Impression and plan of care have been directed as dictated by the signing physician. Maria Victoria Darling nurse practitioner acting as scribe for signing physician. Time with Patient: Greater than 30
--- NOTE | 2016-10-30 18:35 | P.PN ---
Subjective This patient is a 81-year-old male being evaluated for recent symptoms of acute dysphasia and possible stroke. Patient was sent for MRI of the brain today which did reveal evidence of a subacute infarct in the posterior lateral brain stem as well as the left middle cerebellar peduncle. These findings would be consistent with his severity of swallowing difficulties. The patient is sitting up in bed and is still somewhat confused due to his history of underlying dementia. Speech therapy is recommending PEG tube placement. Case was discussed today with his daughter Renae was power of traffic law attorney. She was updated on the results of the MRI of the brain that was done today. She will discuss this further with other family members and make a decision on his long- term care. The patient otherwise seems to be resting comfortably in bed. He denies any focal weakness. He still has some degree of dysphasia and dysarthria secondary to the recent stroke. Apparently today the patient was going in and out of third degree heart block with heart rates down into the 30s. Cardiology has been consulted and we will await their further recommendations. We will await further recommendations from internal medicine regarding his long-term care after the discuss these findings with his power of traffic law attorney his daughter Renae. The patient's long-term prognosis at this time remains guarded. Objective - Vital Signs Vital signs: Vital Signs Temp 97.0 F L 10/30/16 08:00 Pulse 69 10/30/16 12:00 Resp 18 10/30/16 12:00 BP 137/64 10/30/16 12:00 Pulse Ox 93 L 10/30/16 12:00 Intake & Output 10/29/16 10/30/16 10/30/16 18:59 06:59 18:59 Intake Total 160 Output Total 200 0 300 Balance -40 0 -300 Weight 78.5 kg 78 kg Intake: Intake, IV Titration 160 Amount Sodium Chloride 0.9% 1, 160 000 ml @ 20 mls/hr IV . Q24H [facility] Rx#:[id number] Output: Urine 200 0 300 Other: Voiding Method Urinal Urinal Incontinent Incontinent # Voids 2 # Bowel Movements 0 - Exam Physical examination: PHYSICAL EXAMINATION: Patient is resting comfortably in bed. VITAL SIGNS: Blood pressure is [162/70]. Heart rate is [62]. Respiration is [18] . Temperature is [97.7]. HEENT: Head is atraumatic, neck is supple, there were no carotid bruits. CHEST: Lungs are clear to auscultation and percussion. CARDIAC: S1, S2 normal rate and rhythm. There is no murmur. ABDOMEN: Soft and nontender. Bowel sounds are present. EXTREMITIES: There is no pedal edema. Peripheral pulses are present. Neurological examination: Patient's neurological examination is unchanged from yesterday. He remains slightly dysphasic with difficulty with swallowing. 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 Patient was noted to have increased difficulty with dysphagia and had failed his swallow evaluation. He was unable to do a barium swallow study today. There is concern for possibility of brainstem stroke as he has multiple stroke risk factors including paroxysmal atrial fibrillation and hyperlipidemia. He suffers from advanced dementia as well and is currently being treated. For his atrial fibrillation he has been using Ahlquist for long-term anticoagulation. He was just recently discharged from Hospital last week and returns due to worsening symptoms of confusion and mental status changes. We have recommended the patient undergo MRI of the brain for further evaluation of possible brainstem ischemia and/or brainstem stroke. He is to remain nothing by mouth at this time. He has a history of underlying seizure disorder and should be maintained on Keppra for seizure prophylaxis. The patient was able to complete MRI of the brain today. MRI of the brain reveals evidence of a subacute infarct involving the posterior lateral brainstem on the left as well as a left middle cerebellar peduncle. These findings would explain his severe swallowing difficulties. Speech pathology is recommending PEG tube placement. Patient also has been having cardiac issues with third degree AV block. Heart rate has been fluctuating. Cardiology has been consulted for further evaluation and recommendations. This patient's case was discussed today with his power of traffic law attorney his daughter Renae over the phone. She was updated on his MRI results. She will discuss further treatment plans with the admitting physician Dr. Marino tomorrow in terms of what she would like done for her father. His overall prognosis at this time remains very guarded.
[2016-10-30] MEDS: ATORVASTATIN 20 MG TAB PO SCH (22:00)
[2016-10-30] MEDS: ENOXAPARIN 80 MG/0.8 ML SYRINGE SQ SCH (22:33)
[2016-10-30] MEDS: ENALAPRILAT 1.25 MG/ML 1 ML VIAL IVP PRN (22:33)
--- NOTE | 2016-10-31 07:59 | EEG ---
DATE OF SERVICE: 10/30/2016 INDICATIONS FOR EXAMINATION: This patient is an 81-year-old male being evaluated for acute brainstem stroke. The patient has a history of dementia and atrial fibrillation. AGE: 81Y FINDINGS: A routine 21-channel awake digital EEG recording was accomplished utilizing the 10 to 20 international system with bipolar and referential montages. The background activity in the most alert resting state consists of a low to medium amplitude fairly well developed and well sustained 6 Hz activity over the posterior head regions. This posterior rhythm attenuates to eye opening. There is a small amount of lot amplitude 18 to 20 Hz beta activity seen maximally over the anterior head regions. Muscle and movement artifact was observed on a few occasions during the tracing. Hyperventilation was not performed. Photic stimulation at flash frequencies of 2 to 30 Hz produced a minimal occipital driving response. No epileptiform discharges were seen. IMPRESSION: This EEG is moderately abnormal in diffuse fashion due to slowing of the EEG background. The EEG failed to reveal any focal, lateralized or epileptiform abnormalities. Clinical correlation is recommended.
[2016-10-31] MEDS: PIPERACILLIN-TAZOBACTAM 3.375 GM in DEXTROSE/WATER 1 50ML.BAG IVPB SCH ×3 (08:14→23:55)
[2016-10-31] MEDS: SODIUM CHLORIDE 0.9% 1,000 ML IV SCH ×2 (08:15→20:05)
[2016-10-31] MEDS: DONEPEZIL 5 MG TAB PO SCH ×2 (12:50→20:05)
[2016-10-31] MEDS: ENOXAPARIN 80 MG/0.8 ML SYRINGE SQ SCH ×2 (12:50→20:59)
[2016-10-31] MEDS: levETIRAcetam IV 500 MG in SODIUM CHLORIDE 0.9% 100 ML IVPB SCH ×2 (12:50→21:57)
[2016-10-31] MEDS: ASPIRIN 81 MG CHEW PO SCH (12:50)
[2016-10-31] MEDS: amLODIPine 5 MG TAB PO SCH (12:50)
[2016-10-31] MEDS: risperiDONE 0.5 MG TAB PO SCH ×2 (12:51→20:05)
[2016-10-31] MEDS: LISINOPRIL 20 MG TAB PO SCH ×2 (12:51→20:05)
[2016-10-31] MEDS: ISOSORBIDE MONONITRATE ER 15 MG TAB PO SCH (12:51)
[2016-10-31] MEDS: LORazepam 2 MG/ML SYRINGE IV PRN (14:27)
--- NOTE | 2016-10-31 14:36 | P.PN ---
Subjective This is an 81-year-old male patient who was brought into the emergency department yesterday because of generalized weakness, increased shortness of breath and chest congestion. This patient has dementia and his daughter has his power of united states attorney and she is making his medical decisions. In addition, the patient has hypertension, bladder cancer, hyperlipidemia and more recently around June 2016 the patient was diagnosed having a third-degree AV block along with paroxysmal atrial fibrillation. The patient declined pacemaker insertion back then and since then he has not had any major bradycardia arrhythmias. He has been maintained on Eliquis regarding the proximal atrial fibrillation. The patient was in the hospital recently and he was discharged home on 10/25/2016 after being treated for an acute bronchitis/pneumonia. In fact the patient was initially seen by his primary care physician with diagnosed having a rest or checked infection/bronchitis ultimately the patient started having worsening in mental status, diminished level of consciousness, and he had a bout of syncope. For that reason he was admitted to the hospital where no cardiac arrhythmias was identified. The patient's chest x-ray did not reveal any major pneumonias. The patient was treated with antibiotics and ultimately he got released AGAINST MEDICAL ADVICE. Carotid Doppler of his been negative. Echocardiogram at shown a preserved LV function without any significant LV dysfunction abnormalities. No valvular insufficiency or stenosis also noted. Note that during the earlier hospitalization the patient also had some minor troponin leak. His current cardiac rhythm on the EKG is sinus and there is no ST segment elevation or depression. Troponin is minimally elevated and he remains free of any chest pain. This significant other tells me that the patient is also having some difficulty with swallowing. No recent falls. His last bout of fall was approximately 10 days ago and he had a concussion more than 3 years ago due to a fall. His most recent CAT scan of the brain from 10/24/2016 showed diffuse atrophy and white matter changes. Carotid Doppler was insignificant. On 10/29/2016 the patient is being seen in follow-up. I saw this patient in consult yesterday. I thought the patient was having episodes of aspiration based on that I asked his swallow to be evaluated by speech pathology. The swallow evaluation has not been done yet. Meanwhile, the patient not having any major stroke difficulties. He has ruled in for a acute non-ST elevation myocardial infarction based on a minor elevation of the troponin. History of any chest pain. Note that the patient has worsening dementia despite being on Aricept. His performance and functional status is been progressively getting worse and he has significant impairment in his cognitive functions. No seizures been noted that the patient is still on Keppra for now. Still awaiting a swallow evaluation. On 10/30/2016, the patient is being seen in follow-up. The patient is not having any major respiratory difficulties. Aspiration was confirmed by the swallow evaluation. There is deep penetration and large amount of residuals on his swallow evaluation in addition to relate swallow mechanism and silent aspiration. MRI of the brain was also done and showed a subacute stroke/ infarct involving the posterior brainstem and cerebellar peduncles. There is also diffuse atrophy consistent with his underlying dementia. Neurology is on the case. Consideration is to be given for a PEG tube insertion. On 2016 we are seeing this patient in follow-up. His condition essentially the same and stable. The patient remains nothing by mouth for the reasons mentioned earlier. The patient seems to be more interactive today. Sitting up on a chair. Very high risk for aspiration and the patient has significant abnormalities in his swallowing mechanism as mentioned earlier. The patient's family will be arriving today for further discussion regarding a potential of having an enteral feeding tube for nutritional support. Meanwhile, I think other caregivers think that the patient's family will opt not to insert this type of feeding tube. Further recommendations to follow based on discussions with the family. He is hemodynamically stable. No other significant events overnight. No nausea or vomiting. No chest pain. No worsening shortness of breath. Objective - Vital Signs Vital signs: Vital Signs Temp 98.3 F 10/31/16 08:05 Pulse 74 10/31/16 08:05 Resp 20 10/31/16 08:05 BP 143/64 10/31/16 08:05 Pulse Ox 94 L 10/31/16 08:05 Intake & Output 10/30/16 10/31/16 10/31/16 18:59 06:59 18:59 Intake Total 390 Output Total 300 Balance -300 390 Weight 78.5 kg Intake: Intake, IV Titration 390 Amount Piperacillin-Tazobactam 3 50 .375 gm In Dextrose/Water 1 50ml.bag @ 12.5 mls/hr IVPB Q8HR [facility] Rx#: [id number] Sodium Chloride 0.9% 1, 240 000 ml @ 20 mls/hr IV . Q24H [facility] Rx#:[id number] levETIRAcetam IV 500 mg 100 In Sodium Chloride 0.9% 100 ml @ 400 mls/hr IVPB Q12HR [facility] Rx#:[id number] Output: Urine 300 Other: Voiding Method Incontinent # Voids 1 - Exam Head exam was generally normal. There was no scleral icterus or corneal arcus. Mucous membranes were moist.Neck was supple and without jugular venous distension, thyromegaly, or carotid bruits. Carotids were easily palpable bilaterally. There was no adenopathy. Lung sounds are diminished in lung bases bilaterally along with some scattered rhonchi.Cardiac exam revealed the PMI to be normally situated and sized. The rhythm was regular and no extrasystoles were noted during several minutes of auscultation. The first and second heart sounds were normal and physiologic splitting of the second heart sound was noted. There were no murmurs, rubs, clicks, or gallops.Abdominal exam revealed normal bowel sounds. The abdomen was soft, non-tender, and without masses, organomegaly, or appreciable enlargement of the abdominal aorta.Examination of the extremities revealed easily palpable radial, femoral and pedal pulses. There was no cyanosis, clubbing or edema. Neurologic exam is nonfocal Results - Labs CBC & Chem 7: 10/29/16 06:14 10/29/16 06:14 Assessment and Plan Plan: Assessment 1 advanced dementia with increased risk of fall and aspiration knowing that there has been some difficulties with swallowing process. Is very much likely that the patient aspirating on and off adequate material causing some respiratory distress and increased cough and chest congestion. No evidence of pneumonia on the most recent chest x-ray. On 10/29/2016 the patient is being seen in follow-up. I'm still awaiting a swallow evaluation. No significant evidence of pneumonia. I think the patient is on of aspirating specially liquid diet and this is a result of his advanced dementia with loss in his oropharyngeal phase of swallowing. On 10/30/2016, aspiration has been confirmed by a video fluoroscopic examination. The patient has silent aspiration. He has deep penetration. He has delayed swallow. 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 The patient and his family and his power of united states attorney has made a decision not to introduce a feeding tube and the patient is being considered for hospice care. On 10/31/2016, the patient is still nothing by mouth and he remains unchanged compared to yesterday. Awaiting further discussion with the family in regards to enteral feeding for nutritional support via PEG tube versus hospice care. The patient is not having any worsening shortness of breath. His overall Zohreh primary status is stable for now. 2 significant impairment of cognitive function secondary to dementia 3 history of third-degree AV block, current rhythm is sinus 4 paroxysmal atrial fibrillation, current rhythm is sinus 5 suspected non-ST segment elevation myocardial infarction with positive troponins. 6 seizure disorder on Keppra. 7 hyperlipidemia 8 hypertension 9 bladder cancer status post TURP and resection of bladder tumors PLAN Continue supportive care. Awaiting further discussions to take place with the family to decide on treatment plan. Very important to decide whether the patient will have enteral feeding via PEG tube. Alternative will be hospice care.
--- NOTE | 2016-10-31 14:50 | P.PN ---
Subjective 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 fib with worsening dementia and presyncope. Patient was supposed to have a pacemaker and could not convince him or his family for a pacemaker device. Family ended up taking him home on 06/29/2016 after the refusal procedure. Apparently patient has been complaining of increase and worsening dyspnea and shortness of breath with worsening cough ended up seen his PCP was diagnosed with severe bronchitis and left upper lobe pneumonia, patient was treated with oral antibiotics along with expectorant his symptoms become much worse patient had syncopal episodes significant change in mental status and worsening memory loss with the possibility of TIA versus CVA. Ended up coming to the emergency department at [facility] where was seen and evaluated. Patient guardian decided to take him AGAINST MEDICAL ADVICE before testing were completed, chest x-ray showed mild pleural effusion with no infiltrate but mild cardiomegaly. His troponin end up coming positive and the emergency physician convince the family to have him admitted to be evaluated by cardiology and to do serial enzyme and keep him overnight unfortunately patient was released against medical advice on 10/25/2016 and he was brought back by his daughter who carries his durable power of auto body straightener and making his medical decision and patient was seen and evaluated by cardiology and pulmonary and was hence admitted to the hospital. 2/1: Patient has sitter at the bedside for ongoing confusion. Patient has been going in and out of third-degree block with heart rate down to 30s. Cardiology is on consult. Speech therapy has evaluated patient and he underwent modified barium swallow with recommendations for nothing by mouth status and consultation with neurology for possible brainstem infarct. Consult with Dakota montes de oca with recommendations for MRI, Georgina for seizure prophylaxis and seizure precautions. MRI of the brain shows subacute infarct in the posterior lateral brainstem, left middle cerebellar peduncle compatible with patient's history. Age-related atrophy and chronic small vessel ischemia. Sinus disease. Patient is also followed by Dr. Castillo. No evidence of pneumonia but patient continued on Zosyn for possible aspiration. Will contact patient's POA regarding PEG which he would be a poor candidate for this. 2/2: Patient's daughter/POA will be arriving tonight from [place]. Patient required sitter during the night. He was very confused angry and was pulling oxygen off and trying to get out of bed. Awaiting daughter's arrival to make further plans. Objective - Vital Signs Vital signs: Vital Signs Temp 98.3 F 10/31/16 08:05 Pulse 74 10/31/16 08:05 Resp 20 10/31/16 08:05 BP 143/64 10/31/16 08:05 Pulse Ox 94 L 10/31/16 08:05 Intake & Output 10/30/16 10/31/16 10/31/16 18:59 06:59 18:59 Intake Total 390 Output Total 300 Balance -300 390 Weight 78.5 kg Intake: Intake, IV Titration 390 Amount Piperacillin-Tazobactam 3 50 .375 gm In Dextrose/Water 1 50ml.bag @ 12.5 mls/hr IVPB Q8HR [facility] Rx#: [id number] Sodium Chloride 0.9% 1, 240 000 ml @ 20 mls/hr IV . Q24H [facility] Rx#:[id number] levETIRAcetam IV 500 mg 100 In Sodium Chloride 0.9% 100 ml @ 400 mls/hr IVPB Q12HR [facility] Rx#:[id number] Output: Urine 300 Other: Voiding Method Incontinent # Voids 1 - Exam General appearance: mild distress - EENT Eyes: anicteric sclerae, PERRLA, no ptosis, no scleral icterus, normal appearance ENT: hard of hearing, normal oropharynx, no thrush Ears: bilateral: normal - Neck Neck: no lymphadenopathy, normal ROM, no rigidity, no stridor, no thyromegaly Carotids: bilateral: upstroke delayed Thyroid: bilateral: normal size - Respiratory Respiratory: bilateral: diminished, negative: dullness, rales, rhonchi, wheezing , prolonged expiration, prolonged inspiration - Cardiovascular Rhythm: regular Heart sounds: normal: S1, S2 Abnormal Heart Sounds: systolic murmur - Gastrointestinal General gastrointestinal: soft, no splenomegaly, no tenderness, no umbilical hernia, no ventral hernia - Integumentary Integumentary: normal, normal turgor - Neurologic Neurologic: CNII-XII intact - Musculoskeletal Musculoskeletal: generalized weakness, strength equal bilaterally - Psychiatric Psychiatric: no A&O x's 3, no appropriate affect, no intact judgment & insight - Labs CBC & Chem 7: 10/29/16 06:14 10/29/16 06:14 Assessment and Plan Plan: 1. Non-ST myocardial infarction. Patient will be hospitalized, troponin -I x3 and cardiology consult.. 2. Possible aspiration. Modified barium swallow with recommendations as above. Continue nothing by mouth status. 3. Subacute infarct in the posterior lateral brainstem, left middle cerebellar peduncle and worsening dementia: Has been on Aricept 5 mg twice a day continue medication. Neurology consult appreciated. 4. paroxysmal A. fib: Patient has been on Eliquis 2.5 mg orally bid. 5. Hypertension. Has been on lisinopril 20 mg twice a day and amlodipine 5 mg daily. 6. seizure with no new activity that patient has been on Keppra. 500 Mg orally twice per day. 7. BPH: Watch for any urinary retention patient had history of TURP in the past. 8. DVT prophylaxis: Patient is on Eliquis 2.5 mg orally bid. 9. GI prophylaxis: Patient be on Pepcid 20 mg daily. 10. Full code. [facility] Impression and plan of care have been directed as dictated by the signing physician. Maria Victoria Darling nurse practitioner acting as scribe for signing physician. Time with Patient: Greater than 30
--- NOTE | 2016-10-31 16:54 | P.PN ---
Subjective This patient is a 81-year-old male being evaluated for recent symptoms of acute dysphasia and possible stroke. Patient was sent for MRI of the brain today which did reveal evidence of a subacute infarct in the posterior lateral brain stem as well as the left middle cerebellar peduncle. These findings would be consistent with his severity of swallowing difficulties. The patient is sitting up in bed and is still somewhat confused due to his history of underlying dementia. Speech therapy is recommending PEG tube placement. Case was discussed today with his daughter Renae was power of claims attorney. She was updated on the results of the MRI of the brain that was done today. She will discuss this further with other family members and make a decision on his long- term care. The patient otherwise seems to be resting comfortably in bed. He denies any focal weakness. He still has some degree of dysphasia and dysarthria secondary to the recent stroke. Apparently today the patient was going in and out of third degree heart block with heart rates down into the 30s. Cardiology has been consulted and we will await their further recommendations. We will await further recommendations from internal medicine regarding his long-term care after the discuss these findings with his power of claims attorney his daughter Renae. The patient's power of claims attorney is to arrive late this evening to discuss further treatment plans and questionable PEG tube placement for this patient. We will await their final decision tomorrow. Patient apparently required a sitter overnight as he was more confused and belligerent. He was trying to get out of bed. Plans are for possible placement to a usp once a decision is made regarding PEG tube placement. Patient's overall prognosis at this time remains very guarded. We will await further decisions from the power of claims attorney patient's daughter regarding further treatment plans. Objective - Vital Signs Vital signs: Vital Signs Temp 96.8 F L 10/31/16 12:00 Pulse 72 10/31/16 12:00 Resp 18 10/31/16 12:00 BP 142/75 10/31/16 12:00 Pulse Ox 94 L 10/31/16 12:00 Intake & Output 10/30/16 10/31/16 10/31/16 18:59 06:59 18:59 Intake Total 390 Output Total 300 Balance -300 390 Weight 78.5 kg Intake: Intake, IV Titration 390 Amount Piperacillin-Tazobactam 3 50 .375 gm In Dextrose/Water 1 50ml.bag @ 12.5 mls/hr IVPB Q8HR [facility] Rx#: [id number] Sodium Chloride 0.9% 1, 240 000 ml @ 20 mls/hr IV . Q24H [facility] Rx#:[id number] levETIRAcetam IV 500 mg 100 In Sodium Chloride 0.9% 100 ml @ 400 mls/hr IVPB Q12HR [facility] Rx#:[id number] Output: Urine 300 Other: Voiding Method Incontinent # Voids 1 2 - Exam Physical examination: PHYSICAL EXAMINATION: Patient is resting comfortably in bed. VITAL SIGNS: Blood pressure is [142/75]. Heart rate is [72]. Respiration is [18] . Temperature is [97.0]. HEENT: Head is atraumatic, neck is supple, there were no carotid bruits. CHEST: Lungs are clear to auscultation and percussion. CARDIAC: S1, S2 normal rate and rhythm. There is no murmur. ABDOMEN: Soft and nontender. Bowel sounds are present. EXTREMITIES: There is no pedal edema. Peripheral pulses are present. Neurological examination: Patient's neurological examination is unchanged from yesterday. He remains slightly dysphasic with difficulty with swallowing. Patient remains confused and does have a sitter at bedside. He follows only minimal commands. His memory and intellectual functions are impaired. 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 Patient was noted to have increased difficulty with dysphagia and had failed his swallow evaluation. He was unable to do a barium swallow study today. There is concern for possibility of brainstem stroke as he has multiple stroke risk factors including paroxysmal atrial fibrillation and hyperlipidemia. He suffers from advanced dementia as well and is currently being treated. For his atrial fibrillation he has been using Eloquis for long-term anticoagulation. He was just recently discharged from Hospital last week and returns due to worsening symptoms of confusion and mental status changes. We have recommended the patient undergo MRI of the brain for further evaluation of possible brainstem ischemia and/or brainstem stroke. He is to remain nothing by mouth at this time. He has a history of underlying seizure disorder and should be maintained on Keppra for seizure prophylaxis. The patient was able to complete MRI of the brain today. MRI of the brain reveals evidence of a subacute infarct involving the posterior lateral brainstem on the left as well as a left middle cerebellar peduncle. These findings would explain his severe swallowing difficulties. Speech pathology is recommending PEG tube placement. Patient also has been having cardiac issues with third degree AV block. Heart rate has been fluctuating. Cardiology has been consulted for further evaluation and recommendations. This patient's case was discussed today with his power of claims attorney his daughter Renae over the phone. She was updated on his MRI results. She will discuss further treatment plans with the admitting physician Dr. Marino tomorrow in terms of what she would like done for her father. The power of claims attorney will be meeting this evening with the attending physician in regards to PEG tube placement and further treatment plans. Patient will be considered for possible ECF placement. His overall prognosis at this time remains very guarded.
[2016-10-31] MEDS: ATORVASTATIN 20 MG TAB PO SCH (20:05)
[2016-10-31] MEDS: APIXABAN 2.5 MG TABLET PO SCH (20:13)
[2016-11-01] MEDS: levETIRAcetam 500 MG TAB PO SCH (01:22)
[2016-11-01] MEDS: PIPERACILLIN-TAZOBACTAM 3.375 GM in DEXTROSE/WATER 1 50ML.BAG IVPB SCH (09:36)
[2016-11-01] MEDS: ASPIRIN 81 MG CHEW PO SCH (09:38)
[2016-11-01] MEDS: amLODIPine 5 MG TAB PO SCH (09:38)
[2016-11-01] MEDS: ISOSORBIDE MONONITRATE ER 15 MG TAB PO SCH (09:39)
[2016-11-01] MEDS: risperiDONE 0.5 MG TAB PO SCH (09:39)
[2016-11-01] MEDS: DONEPEZIL 5 MG TAB PO SCH (09:39)
[2016-11-01] MEDS: LISINOPRIL 20 MG TAB PO SCH (09:39)
[2016-11-01] MEDS: SODIUM CHLORIDE 0.9% 1,000 ML IV SCH (09:39)
[2016-11-01] MEDS: ENOXAPARIN 80 MG/0.8 ML SYRINGE SQ SCH (09:40)
[2016-11-01 09:52] VITALS: PULSE 50; RESP 18; TEMP 97.7
[2016-11-01 11:36] VITALS: BMI 33.5
[2016-11-01] MEDS: levETIRAcetam IV 500 MG in SODIUM CHLORIDE 0.9% 100 ML IVPB SCH (11:43)
[2016-11-01] MEDS: ENALAPRILAT 1.25 MG/ML 1 ML VIAL IVP PRN (11:52)
[2016-11-01 12:20] VITALS: BP 185/73
--- NOTE | 2016-11-01 13:48 | P.PN ---
Subjective This patient is a 81-year-old male being evaluated for recent symptoms of acute dysphasia and possible stroke. Patient was sent for MRI of the brain today which did reveal evidence of a subacute infarct in the posterior lateral brain stem as well as the left middle cerebellar peduncle. These findings would be consistent with his severity of swallowing difficulties. The patient is sitting up in bed and is still somewhat confused due to his history of underlying dementia. Speech therapy is recommending PEG tube placement. Case was discussed today with his daughter Renae was power of prosecuting attorney. She was updated on the results of the MRI of the brain that was done today. She will discuss this further with other family members and make a decision on his long- term care. The patient otherwise seems to be resting comfortably in bed. He denies any focal weakness. He still has some degree of dysphasia and dysarthria secondary to the recent stroke. Apparently today the patient was going in and out of third degree heart block with heart rates down into the 30s. Cardiology has been consulted and we will await their further recommendations. We will await further recommendations from internal medicine regarding his long-term care after the discuss these findings with his power of prosecuting attorney his daughter Renae. The patient's power of prosecuting attorney is to arrive late this evening to discuss further treatment plans and questionable PEG tube placement for this patient. We will await their final decision tomorrow. Patient apparently required a sitter overnight as he was more confused and belligerent. He was trying to get out of bed. Plans are for possible placement to a fci once a decision is made regarding PEG tube placement. This morning the patient has been more awake and alert. He was reassessed by speech therapy and apparently showed some improvement with the swallow mechanism. Patient's overall prognosis at this time remains very guarded. Case was discussed this morning with Dr. Marino and apparently the plan is for him to be possibly discharged to fci with hospice care. We will await further decisions from the power of prosecuting attorney patient's daughter regarding further treatment plans. Objective - Vital Signs Vital signs: Vital Signs Temp 97.8 F 10/31/16 20:00 Pulse 58 L 11/01/16 06:48 Resp 17 11/01/16 06:48 BP 134/73 11/01/16 06:48 Pulse Ox 94 L 11/01/16 06:48 Intake & Output 10/31/16 11/01/16 11/01/16 18:59 06:59 18:59 Intake Total 350 Balance 350 Weight 78 kg Intake: IV 350 Piperacillin-Tazobactam 3 50 .375 gm In Dextrose/Water 1 50ml.bag @ 12.5 mls/hr IVPB Q8HR [facility] Rx#: [id number] Sodium Chloride 0.9% 1, 200 000 ml @ 20 mls/hr IV . Q24H [facility] Rx#:[id number] levETIRAcetam IV 500 mg 100 In Sodium Chloride 0.9% 100 ml @ 400 mls/hr IVPB Q12HR [facility] Rx#:[id number] Other: Voiding Method Incontinent # Voids 0 1 # Bowel Movements 0 - Exam Physical examination: PHYSICAL EXAMINATION: Patient is resting comfortably in bed. VITAL SIGNS: Blood pressure is [180/73]. Heart rate is [54]. Respiration is [18] . Temperature is [97.7]. HEENT: Head is atraumatic, neck is supple, there were no carotid bruits. CHEST: Lungs are clear to auscultation and percussion. CARDIAC: S1, S2 normal rate and rhythm. There is no murmur. ABDOMEN: Soft and nontender. Bowel sounds are present. EXTREMITIES: There is no pedal edema. Peripheral pulses are present. Neurological examination: Patient's neurological examination is unchanged from yesterday. He remains slightly dysphasic with difficulty with swallowing. Patient remains confused and does have a sitter at bedside. He follows only minimal commands. His memory and intellectual functions are impaired. 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 Patient was noted to have increased difficulty with dysphagia and had failed his swallow evaluation. He was unable to do a barium swallow study today. There is concern for possibility of brainstem stroke as he has multiple stroke risk factors including paroxysmal atrial fibrillation and hyperlipidemia. He suffers from advanced dementia as well and is currently being treated. For his atrial fibrillation he has been using Eloquis for long-term anticoagulation. He was just recently discharged from Hospital last week and returns due to worsening symptoms of confusion and mental status changes. We have recommended the patient undergo MRI of the brain for further evaluation of possible brainstem ischemia and/or brainstem stroke. He is to remain nothing by mouth at this time. He has a history of underlying seizure disorder and should be maintained on Keppra for seizure prophylaxis. The patient was able to complete MRI of the brain today. MRI of the brain reveals evidence of a subacute infarct involving the posterior lateral brainstem on the left as well as a left middle cerebellar peduncle. These findings would explain his severe swallowing difficulties. Speech pathology is recommending PEG tube placement. Patient also has been having cardiac issues with third degree AV block. Heart rate has been fluctuating. Cardiology has been consulted for further evaluation and recommendations. This patient's case was discussed today with his power of prosecuting attorney his daughter Renae over the phone. She was updated on his MRI results. She will discuss further treatment plans with the admitting physician Dr. Marino today in terms of what she would like done for her father. The power of prosecuting attorney will be meeting this evening with the attending physician in regards to PEG tube placement and further treatment plans. Case was discussed today with the primary care physician. Apparently they're considering ECF placement with hospice care. We will await further recommendations from his power of prosecuting attorney. His overall prognosis at this time remains very guarded. We will continue to follow his progress closely during this admission.
--- NOTE | 2016-11-04 12:47 | P.DS ---
Providers Date of admission: 10/28/16 12:28 Expected date of discharge: 11/01/16 Attending physician: Antony Marino Consults: 10/28/16 13:37 Consult Physician Routine Consulting Provider: Lilia Castillo Consult Reason/Comments: copd Do you want consulting provider notified?: Yes Consult Physician Urgent Consulting Provider: Arminda Reyna Consult Reason/Comments: chf Do you want consulting provider notified?: Yes 10/29/16 14:18 Consult Physician Routine Consulting Provider: Pari Duncan Consult Reason/Comments: sudden onset of aspiration. Do you want consulting provider notified?: Yes Primary care physician: Lonny Asif [facility] Course: 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 fib with worsening dementia and presyncope. Patient was supposed to have a pacemaker and could not convince him or his family for a pacemaker device. Family ended up taking him home on 06/29/2016 after the refusal procedure. Apparently patient has been complaining of increase and worsening dyspnea and shortness of breath with worsening cough ended up seen his PCP was diagnosed with severe bronchitis and left upper lobe pneumonia, patient was treated with oral antibiotics along with expectorant his symptoms become much worse patient had syncopal episodes significant change in mental status and worsening memory loss with the possibility of TIA versus CVA. Ended up coming to the emergency department at [facility] where was seen and evaluated. Patient guardian decided to take him AGAINST MEDICAL ADVICE before testing were completed, chest x-ray showed mild pleural effusion with no infiltrate but mild cardiomegaly. His troponin end up coming positive and the emergency physician convince the family to have him admitted to be evaluated by cardiology and to do serial enzyme and keep him overnight unfortunately patient was released against medical advice on 10/25/2016 and he was brought back by his daughter who carries his durable power of finance attorney and making his medical decision and patient was seen and evaluated by cardiology and pulmonary and was hence admitted to the hospital. 2: Patient has sitter at the bedside for ongoing confusion. Patient has been going in and out of third-degree block with heart rate down to 30s. Cardiology is on consult. Speech therapy has evaluated patient and he underwent modified barium swallow with recommendations for nothing by mouth status and consultation with neurology for possible brainstem infarct. Consult with Dakota montes de oca with recommendations for MRI, [place] for seizure prophylaxis and seizure precautions. MRI of the brain shows subacute infarct in the posterior lateral brainstem, left middle cerebellar peduncle compatible with patient's history. Age-related atrophy and chronic small vessel ischemia. Sinus disease. Patient is also followed by Dr. Castillo. No evidence of pneumonia but patient continued on Zosyn for possible aspiration. Will contact patient's POA regarding PEG which he would be a poor candidate for this. 2/2: Patient's daughter/POA will be arriving tonight from [place]. Patient required sitter during the night. He was very confused angry and was pulling oxygen off and trying to get out of bed. Awaiting daughter's arrival to make further plans. 23: ST has reassessed patient and recommended pureed with thin liquids for comfort with understanding that he is at high risk for aspiration and this is for comfort only. Family has decided that he will return home as he issues with hospice care. Patient will be discharged today in stable condition. Discharge diagnoses: 1. Subacute infarct in the posterior lateral brainstem, left middle cerebellar peduncle and worsening dementia 2. Possible aspiration bronchitis 3. Non-ST myocardial infarction-on previous admission October 24 4. paroxysmal A. fib 5. Hypertension 6. seizure with no new activity 7. BPH. Discharge plan: Home with [facility] Impression and plan of care have been directed as dictated by the signing physician. Maria Victoria Darling nurse practitioner acting as scribe for signing physician. Patient Condition at Discharge: Fair Plan - Discharge Summary New Discharge Prescriptions: Atropine Ophth Soln 1% 5Ml [Isopto Atropine 1% 5Ml] 2 drops PO Q4HR PRN #1 bottle PRN Reason: Secretions LORazepam ORAL CONC [Ativan Intensol] 2 mg PO Q4HR PRN #30 ml PRN Reason: Anxiety Morphine Oral Soln [Roxanol Oral Soln Conc 20MG/ML] 5 mg PO Q4H PRN #30 ml PRN Reason: Pain Discharge Medication List Donepezil [Aricept] 5 mg PO BID 05/03/15 [History] Lisinopril [Prinivil] 20 mg PO BID 05/03/15 [History] Apixaban [Eliquis] 2.5 mg PO BID 06/28/16 [History] amLODIPine [Norvasc] 5 mg PO DAILY 06/28/16 [History] levETIRAcetam [Keppra] 500 mg PO Q12HR 06/28/16 [History] Aspirin 81 mg PO DAILY #30 chewable 10/25/16 [Rx] Atorvastatin [Lipitor] 20 mg PO HS #30 tab 10/25/16 [Rx] Isosorbide Mononitrate ER [Imdur] 15 mg PO DAILY #30 dose 10/25/16 [Rx] Nitroglycerin Sl Tabs [Nitrostat] 0.4 mg SUBLINGUAL Q5M PRN #25 tab 10/25/16 [Rx ] risperiDONE [RisperDAL] 0.5 mg PO BID #60 tab 10/25/16 [Rx] Albuterol Inhaler [Ventolin Hfa Inhaler] 2 puff INHALATION RT-Q6H PRN 10/28/16 [ History] Atropine Ophth Soln 1% 5Ml [Isopto Atropine 1% 5Ml] 2 drops PO Q4HR PRN #1 bottle 11/01/16 [Rx] LORazepam ORAL CONC [Ativan Intensol] 2 mg PO Q4HR PRN #30 ml 11/01/16 [Rx] Morphine Oral Soln [Roxanol Oral Soln Conc 20MG/ML] 5 mg PO Q4H PRN #30 ml 11/01 [Rx] Follow up Appointment(s)/Referral(s): Lonny Asif MD [Primary Care Provider] - As Needed Activity/Diet/Wound Care/Special Instructions: Pureed diet with thin liquids and aspiration precautions. Discharge Disposition: HOME WITH HOSPICE
== END 2016-11-01 19:11 | disposition hospice, home (50) | DRG 64 ==
LOC: EC 10:04 → 6SEL 12:28
PROVIDERS: ADMIT Internal Medicine; ATTEND Internal Medicine
DX: I63.9 Cerebral infarction, unspecified (principal); I21.4 Non-ST elevation (NSTEMI) myocardial infarction; I44.2 Atrioventricular block, complete; J68.0 Bronchitis and pneumonitis due to chemicals, gases, fumes and vapors; R13.10 Dysphagia, unspecified; I11.0 Hypertensive heart disease with heart failure; I48.0 Paroxysmal atrial fibrillation; Z66 Do not resuscitate; Z51.5 Encounter for palliative care; I50.9 Heart failure, unspecified; G30.9 Alzheimer's disease, unspecified; G40.909 Epilepsy, unspecified, not intractable, without status epilepticus; J44.9 Chronic obstructive pulmonary disease, unspecified; F02.80 Dementia in other diseases classified elsewhere, unspecified severity, without behavioral disturbance, psychotic disturbance, mood disturbance, and anxiety; N40.1 Benign prostatic hyperplasia with lower urinary tract symptoms; R47.02 Dysphasia; R47.1 Dysarthria and anarthria; E78.5 Hyperlipidemia, unspecified; I25.2 Old myocardial infarction; M19.90 Unspecified osteoarthritis, unspecified site; Z85.51 Personal history of malignant neoplasm of bladder; Z86.73 Personal history of transient ischemic attack (TIA), and cerebral infarction without residual deficits; Z91.81 History of falling; Z79.01 Long term (current) use of anticoagulants; Z79.82 Long term (current) use of aspirin; Z79.899 Other long term (current) drug therapy
CPT/HCPCS: 36415; 70551; 71020; 74230; 80053; 80177; 82550; 82553; 83605; 83735; 83880; 84484; 85025; 85610; 85730; 87040; 93005; 94640; 95816; 96361; 96374; 99285

== ENCOUNTER 2016-11-11 15:58 | Inpatient (IN) | payer MEDICAID ==
[2016-11-11] MEDS ORDERED: MORPHINE SULFATE 2 MG/ML SYRINGE IVP PRN (18:00)
[2016-11-11] MEDS ORDERED: MORPHINE SULFATE 4 MG/ML SYRINGE IVP PRN (18:01)
[2016-11-11] MEDS ORDERED: MORPHINE SULFATE 10 MG/ML SYRINGE IVP PRN (18:02)
[2016-11-11] MEDS ORDERED: BISACODYL 10 MG SUPP RECTAL PRN (18:04)
[2016-11-11] MEDS ORDERED: ACETAMINOPHEN SUPPOSITORY 650 MG SUPP RECTAL PRN (18:05)
[2016-11-11] MEDS ORDERED: SCOPOLAMINE 1.5MG/72HR PATCH TRANSDERM SCH (18:15)
[2016-11-11] MEDS: PHENobarbital SODIUM 65 MG/ML 1 ML VIAL IV PRN (18:51)
[2016-11-12] MEDS: PHENobarbital SODIUM 65 MG/ML 1 ML VIAL IV PRN (00:56)
[2016-11-12 10:40] VITALS: BMI 26.6
[2016-11-12] MEDS ORDERED: MORPHINE SULFATE 100 MG in SODIUM CHLORIDE 0.9% 100 ML IV SCH (12:00)
[2016-11-12 15:52] VITALS: RESP 14
[2016-11-12 16:13] VITALS: BP 79/54; PULSE 87; TEMP 100.7
--- NOTE | 2016-11-13 | P.HPIM ---
History of Present Illness H&P Date: 11/12/16 Chief Complaint: Change in mental status, reaction to medication, recent history of brainste 81-year-old male one of Dr. Victoria patient with past medical history of Alzheimer disease, bladder cancer, history of hypertension, hypertensive cardiovascular disease, third degree AV block with paroxysmal A. fib, recent admission for non-ST DC with refusal to stay in the hospital to go for any invasive procedure, recent history of syncope with TIA symptom and recurrent symptoms. 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 Patient had been seizure activity as well has been managed with medication. He was discharged home into hospice care. Patient apparently become very restless with attempt to use lorazepam patient had significant reaction. Hospice switch him to phenobarbital and had more reaction with the patient become very restless in and out of bed uncontrollable. Hospice decided to admit him to the hospital for symptoms control and possible placement from here in one of the fdc and hospice. And patient was evaluated in the hospital his caregiver was on the bedside patient was resting constantly has not received any medication so far. Plan hospice had so far to titrate his medication including morphine drip and to send him into one of the facility able to titrate and take him on morphine as well. Review of Systems Constitutional: Reports anorexia, Reports chronic pain, Reports lethargy, Reports malaise, Reports poor appetite, Reports weakness, Reports weight loss, Denies as per HPI, Denies chills, Denies chronic headaches, Denies daytime sleepiness, Denies fatigue, Denies fever, Denies night sweats, Denies sweats, Denies weight gain Eyes: bilateral as per HPI Ears: bilateral: decreased hearing Ears, nose, mouth and throat: Reports ant. neck pain, Reports nasal congestion, Reports nasal discharge, Reports sinus pain, Reports sinus pressure, Reports swelling in mouth, Denies as per HPI, Denies bleeding gums, Denies dental pain, Denies dysphagia, Denies epistaxis, Denies headache, Denies hoarseness, Denies mouth pain, Denies neck fullness/pressure, Denies neck lump, Denies nose pain, Denies odynophagia, Denies post-nasal drip, Denies swelling in throat, Denies sore throat, Denies vertigo, Denies voice changes Cardiovascular: Reports chest pain, Reports lightheadedness, Reports paroxysmal nocturnal dyspnea, Reports rapid heart beat, Reports shortness of breath, Denies as per HPI, Denies claudication, Denies decreased exercise tolerance, Denies dyspnea on exertion, Denies edema, Denies high blood pressure, Denies irregular heart beat, Denies leg edema, Denies orthopnea, Denies palpitations, Denies phlebitis, Denies syncope Respiratory: Reports congestion, Reports cough, Denies as per HPI, Denies cough with sputum, Denies dyspnea, Denies excessive sputum, Denies hemoptysis, Denies home oxygen, Denies pain, Denies pain on inspiration, Denies pleurisy, Denies respiratory infections, Denies sleep apnea, Denies snoring, Denies wheezing Gastrointestinal: Reports bloating, Reports constipation, Reports dyspepsia, Reports indigestion, Reports loss of appetite, Denies as per HPI, Denies abdominal pain, Denies belching, Denies BRBPR, Denies change in bowel habits, Denies coffee ground emesis, Denies diarrhea, Denies early satiety, Denies excessive gas, Denies heartburn, Denies hematemesis, Denies hematochezia, Denies jaundice, Denies lactose intolerance, Denies melena, Denies nausea, Denies vomiting Genitourinary: Reports urinary frequency, Reports urinary hesitancy, Denies as per HPI, Denies decreased libido, Denies difficulties fathering child, Denies discharge, Denies dysuria, Denies erectile dysfunction, Denies flank pain, Denies genital pain, Denies genital sores, Denies hematuria, Denies impotence, Denies incontinence, Denies kidney stones, Denies nocturia, Denies polyuria, Denies testicular lump, Denies testicular pain, Denies urinary retention Musculoskeletal: Reports low back pain, Reports muscle cramps, Reports muscle weakness, Reports myalgias, Reports neck pain, Reports neck stiffness, Denies as per HPI, Denies arm numbness/tingling, Denies atrophy, Denies fractures, Denies frequent falls, Denies gait dysfunction, Denies hot joints, Denies leg numbness/tingling, Denies limitation of motion, Denies loss of height, Denies morning stiffness, Denies prior amputations, Denies redness of joints, Denies shooting arm pain, Denies shooting leg pain Integumentary: Reports pruritus, Reports rash, Denies as per HPI, Denies acne, Denies boils, Denies brittle nails, Denies change in hair/nails, Denies color changes, Denies darkening of skin, Denies depigmentation, Denies dryness, Denies foot/leg ulcers, Denies growths, Denies hirsutism, Denies lesions, Denies onychomycosis, Denies sores, Denies striae, Denies unusual bruising, Denies wounds Neurological: Reports aphasia, Reports ataxia, Reports confusion, Reports memory loss, Reports numbness, Reports paresthesias, Reports tingling, Reports weakness, Denies as per HPI, Denies balance difficulties, Denies burning pain, Denies change in mentation, Denies change in smell/taste, Denies change in speech, Denies convulsions, Denies double vision, Denies gait dysfunction, Denies head injury, Denies headaches, Denies hearing difficulties, Denies lack of coordination, Denies loss of vision, Denies migraines, Denies motor disturbance, Denies paralysis, Denies seizures, Denies sensory deficit, Denies spasticity, Denies syncope, Denies tic, Denies transient paralysis, Denies tremors, Denies vertigo, Denies visual changes Psychiatric: Reports change in appetite, Reports change in sleep habits, Reports disorientation, Reports hypersomnia, Reports insomnia, Reports irritability, Reports memory loss, Reports sadness/tearfulness, Denies as per HPI, Denies anhedonia, Denies anxiety, Denies anxiety attacks, Denies change in libido, Denies confusion, Denies depression, Denies difficulty concentrating, Denies hallucinations, Denies hopelessness, Denies mood swings, Denies paranoia , Denies sleep disturbances, Denies suicidal ideation Endocrine: Reports excessive sweating, Reports fatigue, Reports heat intolerance , Reports nocturia, Reports polyuria, Denies as per HPI, Denies cold intolerance , Denies deepening of the voice, Denies excessive thirst, Denies flushing, Denies high blood sugars, Denies increase in ring/shoe/hat size, Denies low blood sugars, Denies palpitations, Denies polydipsia, Denies polyphagia, Denies proptosis, Denies recent glucocorticoid use, Denies thyroid mass, Denies weight change Hematologic/Lymphatic: Reports easy bruising, Denies as per HPI, Denies easy bleeding, Denies lymphadenopathy, Denies lymphedema, Denies thrombophilia Allergic/Immunologic: Reports allergic rhinitis, Denies as per HPI, Denies anaphylaxis, Denies angioedema, Denies gluten intolerance, Denies persistent infections, Denies seasonal allergies, Denies urticaria, Denies wheezing Past Medical History Past Medical History: Atrial Fibrillation, Cancer, CVA/TIA, Dementia, Hyperlipidemia, Hypertension, Osteoarthritis (OA), Pneumonia Additional Past Medical History / Comment(s): Other HX: Bladder cancer with chemotherapy-family and caretakers deny surgical intervention, alzheimer's, 3rd degree heart block with paroxysmal AFib-REFUSED PACEMAKER, dementia, hyperlipidemia, hypertension, osteoarthritis, seizure disorder maintained on Keppra, bronchitis History of Any Multi-Drug Resistant Organisms: None Reported Past Surgical History: Bladder Surgery Additional Past Surgical History / Comment(s): 2011 colonoscopy, cystoscopy , TURP and resection of bladder tumors Past Anesthesia/Blood Transfusion Reactions: No Reported Reaction Past Psychological History: No Psychological Hx Reported Additional Psychological History / Comment(s): Pt resides in his home with his significant other. . He uses no assistive device. He no longer drives. has hospice and family supportcaregiver atc Smoking Status: Never smoker Past Alcohol Use History: None Reported Additional Past Alcohol Use History / Comment(s): Pt was a heavy drinker butstopped heavy drinking 4 years ago.then went to 1-2 beer per day but now none in 3 weeks. Past Drug Use History: None Reported - Past Family History Mother Family Medical History: No Reported History Additional Family Medical History / Comment(s): Mother after childbirth from an infection-influenza or pneumonia possibly. Father Family Medical History: No Reported History Additional Family Medical History / Comment(s): Father from a tractor accident in his 70's Brother(s) Family Medical History: No Reported History Sister(s) Family Medical History: No Reported History Daughter(s) Family Medical History: No Reported History Medications and Allergies Home Medications Medication Instructions Recorded Confirmed Type Atropine Ophth Soln 1% 5Ml [Isopto 2 drops PO Q4H PRN 11/11/16 11/11/16 History Atropine 1% 5Ml] Morphine Oral Soln [Roxanol Oral 5 mg PO Q4H PRN 11/11/16 11/11/16 History Soln Conc 20MG/ML] Allergies Allergy/AdvReac Type Severity Reaction Status Date / Time lorazepam [From Ativan] AdvReac Confusion Verified 11/11/16 18:17 Physical Exam Vitals: Vital Signs Temp Pulse Resp BP Pulse Ox 11/12/16 08:00 16 11/12/16 07:00 100.1 F H 99 16 80/55 91 L 11/11/16 23:00 99.0 F 89 16 113/67 91 L 11/11/16 18:47 97.7 F 84 18 101/58 90 L 11/11/16 18:20 8 L Intake and Output 11/11/16 11/12/16 11/12/16 22:59 06:59 14:59 Output Total 0 400 Balance 0 -400 Output: Urine 0 400 Other: Voiding Method Indwelling Catheter Indwelling Catheter # Voids 0 1 Weight 70.5 kg 70.5 kg Patient Weight 11/13/16 06:59 Weight 70.5 kg - Constitutional General appearance: no average body habitus, no cooperative, disheveled, no mild distress, no morbidly obese, no acute distress, no obese, no severe distress, no thin - EENT Eyes: no abnormal pupil, no anicteric sclerae, no disc margins sharp, no edentulous, no EOMI, no PERRLA, no fundus normal, no photophobia, no dentition normal, no poor dentition, no ptosis, no scleral icterus, normal appearance ENT: normal oropharynx Ears: bilateral: normal - Neck Neck: no lymphadenopathy, normal ROM, no other, no rigidity, no stridor, no thyromegaly Carotids: bilateral: upstroke normal Thyroid: bilateral: normal size - Respiratory Respiratory: bilateral: CTA, diminished, dullness, rales - Cardiovascular Rhythm: irregularly irregular Heart sounds: normal: S1, S2 Abnormal Heart Sounds: systolic murmur, S3 Gallop - Gastrointestinal General gastrointestinal: no absent bowel sounds, decreased bowel sounds, distended, no hepatomegaly, no hyperactive bowel sounds, normal bowel sounds, no organomegaly, no rigid, no scaphoid, soft, no splenomegaly, no tenderness, no umbilical hernia, no ventral hernia - Integumentary Integumentary: no calor, no cellulitis, no cyanotic, no decreased turgor, no flushed, no jaundiced, normal, no normal turgor, pale, rash, no ulcer - Musculoskeletal Musculoskeletal: no gait normal, no generalized weakness, no strength equal bilaterally, no right sided weakness, no left sided weakness - Psychiatric Psychiatric: no A&O x's 3, no appropriate affect, no intact judgment & insight Thrombosis Risk Factor Assmnt - Choose All That Apply Any of the Below Risk Factors Present?: Yes Each Factor Represents 1 point: Obesity (BMI >25) Other Risk Factors: Yes Each Risk Factor Represents 2 Points: Age 61-74 years, Malignancy Other congenital or acquired thrombophilia - If yes, enter type in comment: No Thrombosis Risk Factor Assessment Total Risk Factor Score: 5 Thrombosis Risk Factor Assessment Level: High Risk Assessment and Plan Plan: 1 end-stage multiple medical problem including end-stage CAD, dementia, brainstem infarct and cerebellar infarct as well, seizure, paroxysmal atrophy fibrillation and many other with severe debility patient has been hospice care with titrate medication for comfort care at this point. 2 recent history of brainstem infarct and cerebellar infarct: With patient current medical problem including his A. fib and third degree AV block and such he is on medical management mostly comfort care only. 3 paroxysmal atrophy fibrillation: Pulse rate has been controlled patient was on anticoagulation along with small dose of beta shorty is up to hospice and the family whether to start him back on medication or not. For seizure: With no new seizure activity has been on Keppra 500 mg twice a day with good result so far. 5 advanced dementia: Combination of Alzheimer disease along with small vessel disease and old stroke, continue Aricept and continue to control his behavior with medication adjusted by hospice. 6 advance atherosclerotic heart disease: Patient is on medical management no aggressive treatment at this point. 7 aggressiveness and worsening mental status along with intractable pain: Patient had reaction to phenobarbital and lorazepam, hospice was start him on morphine drip and titrate medication other option including but not limited to product like haloperidol and Risperdal if needed. 8 hypertension: Blood pressure has been under control. 9 recent history of non-ST myocardial infarction from October 24: Patient is not a candidate for any intervention. CODE STATUS: DO NOT RESUSCITATE, hospice care. Expectation from this admission: Patient will be hospitalized for symptoms control and whenever hospice ready to make an arrangement for his next step including back home with help or fdc with hospice can be discharged any day.
--- NOTE | 2016-11-18 09:46 | CDI ---
In responding to this query, please exercise your independent professional judgment. The [facility] Coding Staff and Clinical Documentation Specialists appreciate your assistance in clarifying documentation, maintaining compliance with coding guidelines, accurately documenting patients condition and capturing severity of illness. The fact that a question is asked does not imply that any particular answer is desired or expected. Communication forms are a method of clarifying documentation and are not made part of the Legal Health Record. Thank you in advance for your clarification. Last Revision, November 2015 Lispat Weiss [address] [place] [address] Documentation Clarification Form Date: 11/18/2016 9:22:00 AM From: Tiki Oshea Phone: Admit Date: 11/11/2016 5:55:00 PM Patient Name: Nino Razo Visit Number: [id number] Discharge Date: 11/18/16 Dr. Contreras Ramirez He was discharged home into hospice care, Patient apparently become very restless with attempt to use Lorazepam, patient had significant reaction. Hospice switched him to Phenobarbital and had more reaction per H&P. Patient history/risk factors: end-stage multiple medical problem: CAD, dementia , brainstem infarct & cerebral infarct, paroxysmal atrial fibrillation, HTN. In your professional opinion, please clarify the etiology of the altered mental status, if known. Delirium (specify cause): Dementia (if know, specify Type and if with/without Behavioral Disturbance) Encephalopathy (specify Type and Underlying Medical Illness) Other condition (please specify) Unable to determine Please document in your progress notes and discharge summary in order to capture severity of illness and risk of mortality. Include clinical findings that support your diagnosis. FYI: Press F11 to launch patient chart. JULIANNE Bynum, CCS, AHIMA Certified [employer] Technologist/[employer] Technologist II ZAINAB
--- NOTE | 2016-11-22 16:51 | P.DS ---
Providers Date of admission: 11/11/16 17:55 Expected date of discharge: 11/13/16 Attending physician: Antony Marino Primary care physician: Antony Marino Hospital Course: 81-year-old male one of Dr.Antwan Asif patient with past medical history of Alzheimer disease, bladder cancer, history of hypertension, hypertensive cardiovascular disease, third degree AV block with paroxysmal A. fib, recent admission for non-ST ID with refusal to stay in the hospital to go for any invasive procedure, recent history of syncope with TIA symptom and recurrent symptoms. 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 Patient had been seizure activity as well has been managed with medication. He was discharged home into hospice care. Patient apparently become very restless with attempt to use lorazepam patient had significant reaction. Hospice switch him to phenobarbital and had more reaction with the patient become very restless in and out of bed uncontrollable. Hospice decided to admit him to the hospital for symptoms control and possible placement from here in one of the [facility] and hospice. And patient was evaluated in the hospital his caregiver was on the bedside patient was resting constantly has not received any medication so far. Plan hospice had so far to titrate his medication including morphine drip and to send him into one of the facility able to titrate and take him on morphine as well. 11/13: patient continued to have agitation despite use of Ativan. Patient was made comfortable and ended up expiring on November 13. Discharge Diagnoses: 1 metabolic encephalopathy secondary to acute worsening of probable aspiration pneumonia-- preliminary cause of 2 recent history of brainstem infarct and cerebellar infarct 3 paroxysmal atrial fibrillation 4 seizure 5 advanced dementia: Combination of Alzheimer disease along vascular dementia 6 advance atherosclerotic heart disease 7 aggressiveness and worsening mental status along with intractable pain 8 hypertension 9 recent history of non-ST myocardial infarction from October 24 Impression and plan of care have been directed as dictated by the signing physician. Maria Victoria Darling nurse practitioner acting as scribe for signing physician. Patient Condition at Discharge: Undetermined Plan - Discharge Summary Discharge Medication List LORazepam ORAL CONC [Ativan Intensol] 2 mg PO Q4HR PRN #30 ml 11/01/16 [Rx] Atropine Ophth Soln 1% 5Ml [Isopto Atropine 1% 5Ml] 2 drops PO Q4H PRN 11/11/16 [History] Morphine Oral Soln [Roxanol Oral Soln Conc 20MG/ML] 5 mg PO Q4H PRN 11/11/16 [ History] Discharge Disposition: - Preliminary Cause of Preliminary Cause of : aspiration pneumonia
== END 2016-11-13 06:00 | disposition expired | DRG 884 ==
LOC: 4MS4W 17:55
PROVIDERS: ADMIT Internal Medicine; ATTEND Internal Medicine
DX: R45.1 Restlessness and agitation (principal); J69.0 Pneumonitis due to inhalation of food and vomit; I44.2 Atrioventricular block, complete; G93.41 Metabolic encephalopathy; I48.0 Paroxysmal atrial fibrillation; G30.9 Alzheimer's disease, unspecified; I11.9 Hypertensive heart disease without heart failure; Z66 Do not resuscitate; Z51.5 Encounter for palliative care; G40.909 Epilepsy, unspecified, not intractable, without status epilepticus; E78.5 Hyperlipidemia, unspecified; F01.50 Vascular dementia, unspecified severity, without behavioral disturbance, psychotic disturbance, mood disturbance, and anxiety; I25.2 Old myocardial infarction; F02.80 Dementia in other diseases classified elsewhere, unspecified severity, without behavioral disturbance, psychotic disturbance, mood disturbance, and anxiety; I73.9 Peripheral vascular disease, unspecified; I25.10 Atherosclerotic heart disease of native coronary artery without angina pectoris; M19.90 Unspecified osteoarthritis, unspecified site; Z85.51 Personal history of malignant neoplasm of bladder; Z86.73 Personal history of transient ischemic attack (TIA), and cerebral infarction without residual deficits; Z79.899 Other long term (current) drug therapy